=== PATIENT | female | born 1945 | race Caucasian/White ===

== ENCOUNTER 2018-04-29 23:15 | Inpatient (IN) ==
[2018-04-29] MEDS ORDERED: 0.9 % Sodium Chloride 1,000 ML IVC ONE (23:24)
--- NOTE | 2018-04-29 23:28 | Emergency Department Note ---
Disposition Clinical Impression: Atrial fibrillation with rapid ventricular response Disposition: Admitted As Inpatient Condition: Fair Time of Disposition: 01:37 General Adult HPI - General Stated complaint: irregular heartbeat Time Seen by Provider: 04/29/18 23:24 Nursing Notes Reviewed: Yes Vital Signs Reviewed: Yes - History of Present Illness HPI Narrative: 72-year-old female this emergency department with 2 weeks of shortness of breath. Patient states that she has not had any chest pain, however, today, her shortness of breath increased tremendously. She stated that she was not having palpitations either. Brought in by EMS. Reports A. fib with RVR the highest rate of 200. No fevers, no cough, no recent travel, no history of blood clots. Not taking any blood thinning medications. - Related Data Allergies Allergy/AdvReac Type Severity Reaction Status Date / Time No Known Allergies Allergy Verified 04/29/18 23:29 All systems ED: reviewed and negative except as stated. Review of Systems: As Per HPI Constitutional: Denies: fever Cardiovascular: Denies: chest pain Respiratory: Reports: dyspnea. Denies: cough Gastrointestinal: Denies: abdominal pain, nausea, vomiting Genitourinary: Denies: urgency, dysuria Musculoskeletal: Denies: back pain Hematological/Lymphatic: Denies: easy bleeding Physical Exam - General Limitations: no limitations General appearance: alert, in no apparent distress - Head Head exam: normocephalic - Eye Eye exam: Present: EOMI - ENT ENT exam: normal oropharynx - Neck Neck exam: Present: trachea midline - Chest Chest inspection: Present: symmetric chest wall rise - Respiratory Respiratory exam: Present: normal lung sounds bilaterally. Absent: respiratory distress - Cardiovascular Cardiovascular exam: Present: tachycardia, irregular rhythm - Abdominal Exam Abdominal exam: Present: soft, Non-Tender. Absent: tenderness, distention, guarding, rebound, rigidity - Extremities Exam Extremities exam: Present: normal capillary refill - Back Exam Back exam: Present: full ROM - Neurological Exam Neurological exam: Present: alert, oriented X3 - Psychiatric Psychiatric exam: Present: normal affect, normal mood - Skin Skin exam: Present: warm, dry, intact, normal color. Absent: rash Course Vital Signs Temperature 97.4 F L 04/29/18 23:23 Pulse Rate 169 04/29/18 23:23 Respiratory Rate 22 04/29/18 23:23 Blood Pressure 149/90 04/29/18 23:23 O2 Sat by Pulse Oximetry 98 04/29/18 23:23 Temperature 97.4 F L 04/29/18 23:23 Pulse Rate 133 04/30/18 00:46 Respiratory Rate 22 04/30/18 00:46 Blood Pressure 122/87 04/30/18 00:46 O2 Sat by Pulse Oximetry 97 10 00:46 Oxygen Delivery Oxygen Delivery Nasal Cannula Medical Decision Making - MDM Narrative Medical decision making narrative: 71-year-old female presented to emergency department with concern for shortness of breath over 2 weeks, worsening today. Patient is an age of fibrillation with RVR with a rate as high as 200. Patient was given 50 mg IV bolus of Cardizem. There was a delay and pharmacy to send down Cardizem drip. Patient had to be re-bolused with 10 mg IV. After this, patient's heart rate remained in the 140s with Cardizem 5 mcg/m. It was then increased to 10 mcg/m. Patient had mildly elevated troponin at 0.05. Most likely secondary to demand ischemia due to the elevated heart rate. Chest x-ray revealed right lower lobe atelectasis versus pneumonia versus effusion. Patient not having any cough or sputum production. Mild elevated leukocytosis. Did not suspect pneumonia at this time. Patient cried 2.5 L of oxygen via nasal cannula. Do not suspect pulmonary embolus at this time as patient does not have any chest pain, is not hypotensive. Patient admitted to the hospitalist who agreed to accept. I discussed this with family and they agreed for admission. Patient not in any acute distress, and patient was in A. fib with RVR with a significantly decreased rate in the 130s. Chest X-Ray 04/29/18 23:24 IMPRESSION: Small right lower lobe opacity likely represents atelectasis and pleural fluid. Underlying pneumonia is not excluded. D/ / Akira Rivera MD / Akira Rivera MD Interpreting Provider: Akira Rivera MD Vital Signs Temperature 97.4 F L 04/29/18 23:23 Pulse Rate 169 04/29/18 23:23 Respiratory Rate 22 04/29/18 23:23 Blood Pressure 149/90 04/29/18 23:23 O2 Sat by Pulse Oximetry 98 04/29/18 23:23 Temperature 97.4 F L 04/29/18 23:23 Pulse Rate 133 04/30/18 00:46 Respiratory Rate 22 04/30/18 00:46 Blood Pressure 122/87 04/30/18 00:46 O2 Sat by Pulse Oximetry 97 04/30/18 00:46 Oxygen Delivery Oxygen Delivery Nasal Cannula - Lab Data Result diagrams: 04/30/18 00:15 04/30/18 00:15 Lab Results 04/30/18 04/30/18 04/30/18 Range/Units 00:15 00:15 00:15 WBC 13.2 H (4.3-11.1) K/mcL RBC 4.78 (3.82-4.97) M/mcL Hgb 14.5 (11.5-15.4) g/dL Hct 44.6 (35.3-44.9) % MCV 93.3 (83.0-100.0) fL MCH 30.3 (28.0-33.3) pg MCHC 32.5 (31.6-35.5) g/dL RDW 13.5 (11.5-14.5) % Plt Count 288 (140-400) K/mcL MPV 10.3 (9.4-12.4) fL Immature Gran % 0.5 (0-4) % Seg Neutrophils % 83.1 % Lymphocytes % 9.6 % Monocytes % 6.1 % Eosinophils % 0.3 % Basophils % 0.4 % Neutrophils # 11.0 H (1.6-8.9) K/mcL Lymphocytes # 1.3 (0.6-4.6) K/mcL Monocytes # 0.8 (0.0-1.3) K/mcL Eosinophils # 0.0 (0.0-0.6) K/mcL Basophils # 0.1 (0.0-0.2) K/mcL PT 12.2 H (9.4-12.1) Seconds INR 1.1 APTT 29.7 (26.0-36.0) Seconds Heparin Anti-Xa, Unfract 0.04 L (0.30-0.70) IU/mL Sodium 136 (136-145) mEq/L Potassium 4.1 (3.5-5.1) mEq/L Chloride 110 H (98-107) mEq/L Carbon Dioxide 15 L (23-29) mEq/L BUN 20 (8-23) mg/dL Creatinine 0.86 (0.60-1.20) mg/dL Est GFR ( Amer) > 60 (> 60) Est GFR (Non-Af Amer) > 60 (> 60) BUN/Creatinine Ratio 23 (6-26) Glucose 152 H (70-105) mg/dL Calculated Osmolality 288 (280-300) Calcium 8.7 (8.6-10.3) mg/dL Troponin I 0.05 H* (< 0.04) ng/mL TSH 1.750 (0.340-5.600) mcIU/mL - EKG Data EKG #1 EKG attestation: Yes I reviewed and interpreted this EKG. EKG results narrative: Heart rate 153 bpm, no P waves identified, a regular rhythm, normal axis. Atrial fibrillation with rapid ventricular response. New from previous EKG. Diffuse ST depressions
[2018-04-30 00:32] LABS: Basophils # 0.1 K/mcL (0.0-0.2); Basophils % 0.4 %; Eosinophils % 0.3 %; Hematocrit 44.6 % (35.3-44.9); Hemoglobin 14.5 g/dL (11.5-15.4); Immature Granulocytes % 0.5 % (0-4); Lymphocytes # 1.3 K/mcL (0.6-4.6); Lymphocytes % 9.6 %; Mean Corpuscular HGB Conc 32.5 g/dL (31.6-35.5); Mean Corpuscular Hemoglobin 30.3 pg (28.0-33.3); Mean Corpuscular Volume 93.3 fL (83.0-100.0); Mean Platelet Volume 10.3 fL (9.4-12.4); Monocytes # 0.8 K/mcL (0.0-1.3); Monocytes % 6.1 %; Platelet Count 288 K/mcL (140-400); Red Blood Count 4.78 M/mcL (3.82-4.97); Red Cell Distribution Width 13.5 % (11.5-14.5); Segmented Neutrophils % 83.1 %
[2018-04-30 00:33] LABS: INR 1.1; Prothrombin Time 12.2 Seconds (9.4-12.1)
[2018-04-30 00:36] LABS: Activated Partial Thrombo Time 29.7 Seconds (26.0-36.0)
[2018-04-30 00:46] LABS: BUN/Creatinine Ratio 23 (6-26); Blood Urea Nitrogen 20 mg/dL (8-23); Carbon Dioxide 15 mEq/L (23-29); Chloride 110 mEq/L (98-107); Potassium 4.1 mEq/L (3.5-5.1); Sodium 136 mEq/L (136-145)
[2018-04-30 00:47] LABS: Calcium 8.7 mg/dL (8.6-10.3); Glucose 152 mg/dL (70-105); Osmolality,Calculated 288 (280-300); eGFR For Non-African Americans > 60 (> 60)
[2018-04-30 01:05] LABS: Troponin I 0.05 ng/mL (< 0.04)
[2018-04-30] MEDS ORDERED: *HR* Heparin 5,000 UNIT/ML VIAL IVP ONE (01:08)
[2018-04-30] MEDS ORDERED: *HR* Heparin 5,000 UNIT/ML VIAL IVP PRN ×2 (01:08)
[2018-04-30 01:19] LABS: Heparin anti-factor XA UFH 0.04 IU/mL (0.30-0.70)
[2018-04-30] MEDS: Heparin 25,000 UNIT/500 ML D5W 25,000 UNIT/500 ML BAG IVC SCH (02:04)
--- NOTE | 2018-04-30 02:04 | Emergency Department Note ---
Disposition Clinical Impression: Atrial fibrillation with rapid ventricular response Disposition: Admitted As Inpatient Condition: Fair General Adult HPI - General Chief complaint: ED Arrhythmia/Palpitations Stated complaint: irregular heartbeat Time Seen by Provider: 04/29/18 23:24 Source: patient, EMS Limitations: no limitations Nursing Notes Reviewed: Yes Vital Signs Reviewed: Yes - History of Present Illness Pain Scale: 0 - Related Data Allergies Allergy/AdvReac Type Severity Reaction Status Date / Time No Known Allergies Allergy Verified 04/29/18 23:29 Constitutional: Denies: fever Cardiovascular: Denies: chest pain Respiratory: Reports: dyspnea. Denies: cough Gastrointestinal: Denies: abdominal pain, nausea, vomiting Genitourinary: Denies: urgency, dysuria Musculoskeletal: Denies: back pain Hematological/Lymphatic: Denies: easy bleeding Past Medical History - Past Medical History Medical history: Reports: no medical history Psychiatric history: Reports: no psych history - Social History Smoking Status: Never smoker Smokeless Tobacco Status: No Alcohol use: Reports: none Drug use: Reports: none Physical Exam - General Limitations: no limitations General appearance: alert, in no apparent distress Course Vital Signs Temperature 97.4 F L 04/29/18 23:23 Pulse Rate 169 04/29/18 23:23 Respiratory Rate 22 04/29/18 23:23 Blood Pressure 149/90 04/29/18 23:23 O2 Sat by Pulse Oximetry 98 04/29/18 23:23 Temperature 97.4 F L 04/29/18 23:23 Pulse Rate 133 04/30/18 00:46 Respiratory Rate 22 04/30/18 00:46 Blood Pressure 122/87 04/30/18 00:46 O2 Sat by Pulse Oximetry 97 04/30/18 00:46 Oxygen Delivery Oxygen Delivery Nasal Cannula Medical Decision Making - Medical Records Medical records reviewed: Yes I reviewed the patient's medical records. - Lab Data Lab results reviewed: Yes I reviewed the patient's lab results. Result diagrams: 04/30/18 00:15 04/30/18 00:15 Lab Results 04/30/18 04/30/18 04/30/18 Range/Units 00:15 00:15 00:15 WBC 13.2 H (4.3-11.1) K/mcL RBC 4.78 (3.82-4.97) M/mcL Hgb 14.5 (11.5-15.4) g/dL Hct 44.6 (35.3-44.9) % MCV 93.3 (83.0-100.0) fL MCH 30.3 (28.0-33.3) pg MCHC 32.5 (31.6-35.5) g/dL RDW 13.5 (11.5-14.5) % Plt Count 288 (140-400) K/mcL MPV 10.3 (9.4-12.4) fL Immature Gran % 0.5 (0-4) % Seg Neutrophils % 83.1 % Lymphocytes % 9.6 % Monocytes % 6.1 % Eosinophils % 0.3 % Basophils % 0.4 % Neutrophils # 11.0 H (1.6-8.9) K/mcL Lymphocytes # 1.3 (0.6-4.6) K/mcL Monocytes # 0.8 (0.0-1.3) K/mcL Eosinophils # 0.0 (0.0-0.6) K/mcL Basophils # 0.1 (0.0-0.2) K/mcL PT 12.2 H (9.4-12.1) Seconds INR 1.1 APTT 29.7 (26.0-36.0) Seconds Heparin Anti-Xa, Unfract 0.04 L (0.30-0.70) IU/mL Sodium 136 (136-145) mEq/L Potassium 4.1 (3.5-5.1) mEq/L Chloride 110 H (98-107) mEq/L Carbon Dioxide 15 L (23-29) mEq/L BUN 20 (8-23) mg/dL Creatinine 0.86 (0.60-1.20) mg/dL Est GFR ( Amer) > 60 (> 60) Est GFR (Non-Af Amer) > 60 (> 60) BUN/Creatinine Ratio 23 (6-26) Glucose 152 H (70-105) mg/dL Calculated Osmolality 288 (280-300) Calcium 8.7 (8.6-10.3) mg/dL Troponin I 0.05 H* (< 0.04) ng/mL TSH 1.750 (0.340-5.600) mcIU/mL - Radiology Data Radiology results reviewed: Yes I reviewed the patient's radiology results. Chest X-Ray 04/29/18 23:24 IMPRESSION: Small right lower lobe opacity likely represents atelectasis and pleural fluid. Underlying pneumonia is not excluded. D/ / Akira Rivera MD / Akira Rivera MD Interpreting Provider: Akira Rivera MD - EKG Data EKG #1 EKG attestation: Yes I reviewed and interpreted this EKG. EKG results narrative: EKG shows atrial fibrillation with RVR with ventricular rate of 153. Some ST segment depression likely rate related. Critical Care Time Critical Care Time: Yes Total Critical Care Time: 60 Attestation: Critical care performed: Time is exclusive of separately billable procedures. Time includes: direct patient care, patient reassessment, coordination of patient care, interpretation of data (laboratory data, radiology data, and respiratory data), review of patient's medical records, medical consultation and documentation of patient care. Procedures included in critical care time: Procedures excluded from critical care time: Attestation Statement - Attestation Attestation: I, Margarito Mijares MD, personally evaluated this patient and discussed their management with the resident physician. I reviewed the resident's note and agree with the documented findings, medical decision making, and plan of care. 71-year-old female with no prior medical history on no medications presents to the emergency department by EMS with a complaint of having increasing shortness of breath and palpitations which started about 2 weeks prior to arrival. Patient states that in the past she has had intermittent brief episodes of palpitations with no other symptoms. Over the past 2 weeks she has had increased shortness of breath with exertion to the point that she is unable to climb her basement steps. She states she feels like her heart is racing at times and it feels irregular. No prior history of atrial fibrillation. No history of hypertension or diabetes or other heart disease. No cough or fever. No dizziness or syncope. She has had some fatigue and mild generalized weakness. On examination patient is a well-developed well-nourished well-appearing elderly female in no acute distress. She is alert and oriented 3. There is no cyanosis or diaphoresis. Chest is nontender to palpation. Breath sounds are clear and equal bilaterally. Heart is irregularly irregular with a marked tachycardia. Initial heart rate on arrival here the emergency department was in the 170s and 180s. Abdomen is soft and nontender with normal bowel sounds. No gross focal neurological deficits. Labs reviewed. Troponin 0.05. EKG shows atrial fibrillation with RVR. Chest x -ray shows a right lower lung opacity, likely atelectasis and pleural fluid but cannot rule out pneumonia. Patient has no clinical symptoms of pneumonia. Patient received a Cardizem bolus with improvement in her heart rate down to about 140 however before we could get the Cardizem infusion from pharmacy her heart rate increased back up into the 170s. She received a second Cardizem bolus of 10 mg and was placed on Cardizem infusion at 5 which was later increased to 10. She was also given heparin bolus and started on heparin infusion. The hospitalist, Dr. Clement, was consulted and accepted admission of the patient.
--- NOTE | 2018-04-30 02:16 | Internal Med History&Physical ---
Date of Encounter: 04/30/18 Time of Encounter: 02:14 Internal Medicine - H&P: HPI Chief complaint: Shortness of breath Admitted From: Home Plans for Post Hospital Care: Home History of present illness: Giovanna Beckett is a 72-year-old woman who denies any past medical history presenting to the ER with a complaint of 2 weeks of shortness of breath without associated chest pain. She says she is now dyspneic to mild to moderate exertion and intermittently notices palpitations. She states that today she felt her heart racing and this persisted longer than usual and made her feel lightheaded and significantly short of breath for which reason she called EMS. As per EMS her heart rate was up to 200 at some point in time. On arrival here she was seen to be in atrial fibrillation with rapid ventricular rate and was immediately given intravenous diltiazem and subsequently placed on a drip. She says that she has not sought medical attention in many years although she feels she has had this problem going on for a while as she has felt her heart racing and may have been told she has this condition. Eyes being on antiplatelet or anticoagulant therapy. She denies being on any medications be it prescribed or [id number] at this time. She denies alcohol and tobacco use. Only reported surgeries are lithotripsy for nephrolithiasis and cholecystectomy. She reports a history of hypertension in her father. She denies fever, cough, and chills. At this time she says she just feels tired with her heart racing and has a sensation of abdominal bloating. A 10-system review of systems was performed and is negative for pertinent findings except as documented above in the HPI. She is now admitted for newly diagnosed atrial fibrillation with rapid ventricular rate requiring intravenous antiarrhythmic/rate control agents. Past Med Surg Social Fam HX - Past Medical History Medical history: no medical history Psychiatric history: no psych history - Social History Smoking Status: Never smoker Smokeless Tobacco Status: No Alcohol use: none Drug use: none Internal Medicine - H&P: Meds 3 Allergy/AdvReac Type Severity Reaction Status Date / Time No Known Allergies Allergy Verified 04/29/18 23:29 All Systems PM: A 10-system review of systems was performed and is negative for pertinent findings except as documented above in the HPI. - Constitutional Vitals: Temp Pulse Resp BP Pulse Ox 97.4 F L 145 22 121/100 96 04/29/18 23:23 04/30/18 02:08 04/30/18 02:08 04/30/18 02:08 04/30/18 02:08 Exam: Vitals: Reviewed General: Well-developed female who appears asthenic lying in bed in NAD. Skin: Pale and dry. HEENT: Slightly dry mucous membranes. No conjunctivae pallor. Neck: No lymphadenopathy. No JVD. No carotid bruits. No palpable thyroid. Chest: Normal thoracic expansion. Normal breath sounds. Clear to auscultation. Heart: Tachycardic and irregularly irregular with no pulse deficit. Abdomen: Slightly, soft and non-tender to palpation. No peritoneal reaction. Extremities: No clubbing, cyanosis or edema. No calf tenderness. Normal distal pulses. Neurological: Awake, alert and oriented to person, place and time. No focal deficits. Psych: Affect appropriate. Internal Med - H&P Results - Labs CBC & Chem 7: 04/30/18 00:15 04/30/18 00:15 - Assessment and plan (1) Atrial fibrillation with rapid ventricular response Current Visit: Yes Status: Acute Assessment and plan: Newly diagnosed however based on her history it seems to have been present for a while. She just never sought medical attention. Now she presents in a highly decompensated state that could potentially lead to a functional heart failure state. [id number] score 2 (age/sex). TSH wnl. Check A1C to r/o DM. Continue diltiazem drip and titrate to goal HR <100. Start metoprolol succinate 25mg daily once able to come off the drip. Obtain TTE to r/o structural anomaly. For now will place on heparin gtt. pending Cardiology consult for further recs. Keep NPO. (2) Elevated troponin Current Visit: Yes Status: Acute Assessment and plan: In the setting of afib w/ rvr. Patient w/o chest pain. Likely secondary to myocardial demand. Will continue to trend as we control her heart rate. (3) Leukocytosis Current Visit: Yes Status: Acute Assessment and plan: Unclear etiology. No clinical signs/symptoms of infection present. May be stress response and dehydration. She received 1L fluids. Will repeat cbc in the morning. Qualifiers: Leukocytosis type: unspecified Qualified Code(s): D72.829 - Elevated white blood cell count, unspecified (4) DVT prophylaxis Current Visit: Yes Status: Acute Assessment and plan: Currently on heparin gtt. Should also have AES. - Time Spent With Patient Total time spent is greater than 50% in coordination of care (as documented) at patient's floor/unit and/or counseling patient: Greater than 35 minutes
[2018-04-30] MEDS ORDERED: *HR* Metoprolol 5 MG/5 ML VIAL IVP ONE (03:50)
[2018-04-30] MEDS ORDERED: Ondansetron 4 MG/2 ML VIAL IVP ONE (04:57)
[2018-04-30 06:41] LABS: Basophils % 0.3 %; Eosinophils % 0.2 %; Hematocrit 41.4 % (35.3-44.9); Hemoglobin 13.6 g/dL (11.5-15.4); Immature Granulocytes % 0.4 % (0-4); Lymphocytes # 1.5 K/mcL (0.6-4.6); Lymphocytes % 10.4 %; Mean Corpuscular HGB Conc 32.9 g/dL (31.6-35.5); Mean Corpuscular Hemoglobin 30.8 pg (28.0-33.3); Mean Corpuscular Volume 93.9 fL (83.0-100.0); Mean Platelet Volume 10.5 fL (9.4-12.4); Monocytes # 0.7 K/mcL (0.0-1.3); Monocytes % 5.1 %; Neutrophils # 11.7 K/mcL (1.6-8.9); Platelet Count 281 K/mcL (140-400); Red Blood Count 4.41 M/mcL (3.82-4.97); Red Cell Distribution Width 13.8 % (11.5-14.5); Segmented Neutrophils % 83.6 %
[2018-04-30 06:59] LABS: Alanine Aminotransferase 18 Units/L (7-52); Albumin 3.7 g/dL (3.5-5.7); Albumin/Globulin Ratio 1.3 (1.1-2.2); Alkaline Phosphatase 62 Units/L (34-104); Aspartate Amino Transferase 20 Units/L (13-39); BUN/Creatinine Ratio 21 (6-26); Bilirubin,Direct 0.2 mg/dL (0.0-0.2); Bilirubin,Indirect 0.7 mg/dL (0.0-1.2); Bilirubin,Total 0.9 mg/dL (0.3-1.0); Blood Urea Nitrogen 21 mg/dL (8-23); Calcium 8.5 mg/dL (8.6-10.3); Carbon Dioxide 18 mEq/L (23-29); Chloride 111 mEq/L (98-107); Chol/HDL Ratio 3.6 (0-4.9); Cholesterol 147 mg/dL (< 200); Globulin 2.8 g/dL (2.4-3.5); Glucose 185 mg/dL (70-105); HDL Cholesterol 41 mg/dL (40-59); LDL Cholesterol,Calculated 90 mg/dL (0-99); Osmolality,Calculated 294 (280-300); Potassium 4.4 mEq/L (3.5-5.1); Sodium 138 mEq/L (136-145); Total Protein 6.5 g/dL (6.4-8.9); Triglycerides 78 mg/dL (< 150); eGFR For Non-African Americans 55 (> 60)
[2018-04-30] MEDS: Metoprolol XL (24 HR) Succ 25 MG TAB.ER.24H PO SCH (08:02)
[2018-04-30 09:09] LABS: Estimated Average Glucose 114 mg/dl; Hemoglobin A1C 5.6 %
--- NOTE | 2018-04-30 10:27 | Cardiology Consult Note ---
Date of Encounter: 04/30/18 Time of Encounter: 09:00 Assessment and Plan (1) Atrial fibrillation with rapid ventricular response Current Visit: Yes Status: Acute New onset. Currently rate 120-130s, irregular. She will need rate controlled. Continue Toprolol XL 25mg. Plan to give another bolus Cardizem 10mg and increase drip to 15mls/hr. Goal is HR <80. Will re-evaluate in the morning to possibly switch her to oral medications if heart rate stabilizes. CHADS-VASC 2. On heparin drip for anticoagulation. BLANQUITA completed today. Limited due to poor echo windows and elevated heart rate. LV systolic function moderate to severely reduced with wall motion abnormalities , indeterminate diastolic function, mildly dilated left ventricle, severely dilated left atrium, mild to moderate mitral and tricuspid regurgitation and mild pulmonic regurgitation. Plan for repeat echocardiogram tomorrow if rate is better controlled. (2) Elevated troponin Current Visit: Yes Status: Acute Troponin 0.05 and 0.07. Continue serial troponin. No active chest pain. Likely elevated due to demand ischemia from elevated heart rate and irregular rhythm. (3) Leukocytosis Current Visit: Yes Status: Acute Unclear etiology. Management per medicine service. Qualifiers: Leukocytosis type: unspecified Qualified Code(s): D72.829 - Elevated white blood cell count, unspecified Discussion w patient/family: The assessment and plan as outlined above was discussed with the patient and/or family members who expressed understanding and agreement. All questions were answered. Thank you for involving us in the care of your patient. Please call with any questions. History of Present Illness Consult date: 04/30/18 Requesting physician: Nora Clement Consult reason: New onset AFib in RVR Chief complaint: shortness of breath History of present illness: Ms. Beckett is a 72 year old female With n past medical history who presents with a chief complaint of worsening shortness of breath. Patient complains of shortness of breath with exertion and increasing generalized weakness and tired feeling for the past couple of weeks. Yesterday morning she notes progressively worsening shortness of breath In the evening she felt her heart racing, felt lightheaded, and complains of worsened shortness of breath. She denies any episodes of chest pain. She called EMS to take her to the hospital. It was noted her rate was 200 beats per minute at times. Upon arrival to the ED she was found to be in atrial fibrillation with RVR and was given IV diltiazem bolus and drip. Troponin was noted to be increased at 0.05. Cardiology was consulted for further evaluation of new onset atrial fibrillation. This morning patient denies chest pain, shortness of breath, palpitations, lightheadedness, or any new complaints. States she intermittently feels palpitations for the past few years but has not had it worked up in the past. Patient's diltiazem drip was discontinued overnight as her heart rate came down to the 60-70's. Around 0830, her heart rate was 120-130's and irregular rhythm during my evaluation. Cardizem drip restarted. Past Med Surg Social Fam HX - Past Medical History Medical history: no medical history Additional medical history: kidney stones Psychiatric history: no psych history - Past Surgical History Surgical History: cholecystectomy - Social History Smoking Status: Never smoker Smokeless Tobacco Status: No Alcohol use: none Drug use: none Medications and Allergies Multivit-Min/Iron/Folic Acid/K [Adults Multivitamin Tablet] 1 tab PO DAILY 04/30 [History] 3 Allergy/AdvReac Type Severity Reaction Status Date / Time No Known Allergies Allergy Verified 04/29/18 23:29 All Systems Review: The remainder of the systems were reviewed and are negative - Constitutional Constitutional: weakness, no chills, no fever(s), no headache(s) - EENT Eyes: no blurred vision, no loss of vision Nose, mouth and throat: no dysphagia, no sore throat - Cardiovascular Cardiovascular: dyspnea on exertion, lightheadedness, palpitations, rapid heart rate, no chest pain at rest, no chest pain with exertion, no diaphoresis, no leg edema - Respiratory Respiratory: dyspnea, no cough - Gastrointestinal Gastrointestinal: no abdominal pain, no nausea - Genitourinary Genitourinary: no dysuria - Musculoskeletal Musculoskeletal: no muscle weakness, no myalgias - Integumentary Integumentary: no rash - Neurological Neurological: no loss of vision, no numbness, no syncope, no tingling Physical Examination Vital Signs, Last 4 Hours Temp Pulse Resp BP Pulse Ox 04/30/18 07:24 97.5 F L 89 24 113/72 93 General: Conversant, No Apparent Distress HEENT: Atraumatic, Normocephaly Neck: No JVD, Normal carotid pulses Cardiac: No Murmur, Other (Irregular rhythm, tachycardic) Lungs: Normal Breath Sounds, No Wheeze, Rales, Rhonchi Neuro: Alert and responsive, No focal deficits noted Abdomen: Soft, Non-Tender Skin: No rashes noted on visualized skin Extremities: No Edema, Normal Pulses (Bilateral radial pulses palpable and equal ) Results 04/30/18 06:21 04/30/18 06:21 Lab Results 04/30/18 04/30/18 04/30/18 06:21 06:21 06:21 WBC 14.0 H Hgb 13.6 Hct 41.4 Plt Count 281 Sodium 138 Potassium 4.4 Chloride 111 H Carbon Dioxide 18 L BUN 21 Creatinine 0.99 Glucose 185 H Calcium 8.5 L Total Bilirubin 0.9 AST 20 ALT 18 Alkaline Phosphatase 62 Troponin I 0.07 H* - Imaging and Cardiology Chest Xray: report reviewed Echo: report reviewed Consult Discharge Plan - Plan Referrals: NONE,PCP [Primary Care Provider] - Leodan Marquez [Family Provider] -
--- NOTE | 2018-04-30 11:56 | Internal Med Progress Note ---
Hospitalist Progress Note - Encounter Date of Encounter: 04/30/18 Time of Encounter: 11:49 - Subjective Interval History: No acute events. States feeling better after heart rate controlled. Denies chest pain. States has some SOB, but not much. Denies fevers. - Exam Vitals: Temp Pulse Resp BP Pulse Ox 98.1 F 115 22 150/63 96 04/30/18 11:11 04/30/18 11:11 04/30/18 11:11 04/30/18 11:11 04/30/18 11:11 Exam: General: Well-developed female who appears asthenic lying in bed in NAD. Skin: Pale and dry, diaphoretic HEENT: Slightly dry mucous membranes. No conjunctivae pallor. Neck: No lymphadenopathy. No JVD. No carotid bruits. No palpable thyroid. Chest: Normal thoracic expansion. Normal breath sounds. Clear to auscultation. Heart: Tachycardic and irregularly irregular with no pulse deficit. Abdomen: Slightly, soft and non-tender to palpation. No peritoneal reaction. Extremities: No clubbing, cyanosis or edema. No calf tenderness. Normal distal pulses. Neurological: Awake, alert and oriented to person, place and time. No focal deficits. Psych: Affect appropriate. - Assessment and Plan (1) Atrial fibrillation with rapid ventricular response Current Visit: Yes Status: Acute Assessment and Plan: Newly diagnosed however based on her history it seems to have been present for a while. She just never sought medical attention. Now she presents in a highly decompensated state that could potentially lead to a functional heart failure state. [id number] score 2 (age/sex). TSH wnl. Check A1C to r/o DM. Continue diltiazem drip and titrate to goal HR <100. Start metoprolol succinate 25mg daily once able to come off the drip. Obtain TTE to r/o structural anomaly. Cardiology following, recommendations appreciated. (2) Leukocytosis Current Visit: Yes Status: Acute Assessment and Plan: Unclear etiology. No clinical signs/symptoms of infection present. May be stress response and dehydration. She received 1L fluids. Will repeat cbc in the morning shows WBC 14 CXR shows atelectasis on left but possible pneumonia. She notes to me that yesterday she needed chest rub and has some chest congestion. Has WBC and CXR findings. Will start Doxycycline for 5-7 days. (3) Elevated troponin Current Visit: Yes Status: Acute Assessment and Plan: In the setting of afib w/ rvr. Patient w/o chest pain. Likely secondary to myocardial demand. Will continue to trend as we control her heart rate. (4) DVT prophylaxis Current Visit: Yes Status: Acute Assessment and Plan: Currently on heparin gtt. - Time Spent with Patient Total time spent is greater than 50% in coordination of care (as documented) at patient's floor/unit and/or counseling patient: Internal Medicine: Result - Labs CBC & Chem 7: 04/30/18 06:21 04/30/18 06:21 Labs: Short CBC 04/30/18 Range/Units 06:21 WBC 14.0 H (4.3-11.1) K/mcL Hgb 13.6 (11.5-15.4) g/dL Hct 41.4 (35.3-44.9) % Plt Count 281 (140-400) K/mcL Neutrophils # 11.7 H (1.6-8.9) K/mcL BMP 04/30/18 06:21 Sodium 138 Potassium 4.4 Chloride 111 H Carbon Dioxide 18 L BUN 21 Creatinine 0.99 Glucose 185 H Calcium 8.5 L Cardiac Enzymes 04/30/18 Range/Units 06:21 Troponin I 0.07 H* (< 0.04) ng/mL Liver Function 04/30/18 Range/Units 06:21 Total Bilirubin 0.9 (0.3-1.0) mg/dL Direct Bilirubin 0.2 (0.0-0.2) mg/dL AST 20 (13-39) Units/L ALT 18 (7-52) Units/L Alkaline Phosphatase 62 (34-104) Units/L Albumin 3.7 (3.5-5.7) g/dL - ABG Interpretation ABG results: PT/INR, D-dimer PT 12.2 Seconds (9.4-12.1) H 04/30/18 00:15 Consult Discharge Plan - Plan Referrals: NONE,PCP [Primary Care Provider] - Leodan Marquez [Family Provider] - (2) Leukocytosis Qualifiers: Leukocytosis type: unspecified Qualified Code(s): D72.829 - Elevated white blood cell count, unspecified
[2018-04-30] MEDS: Doxycycline 100 MG in 0.9 % Sodium Chloride Mini Bag 100 ML IVPB SCH (12:53)
[2018-04-30] MEDS ORDERED: Furosemide 20 MG/2 ML VIAL IVP SCH (16:15)
[2018-05-01] MEDS: Doxycycline 100 MG in 0.9 % Sodium Chloride Mini Bag 100 ML IVPB SCH ×2 (00:21→12:47)
[2018-05-01] MEDS: Heparin 25,000 UNIT/500 ML D5W 25,000 UNIT/500 ML BAG IVC SCH (01:05)
[2018-05-01 05:13] LABS: Basophils # 0.1 K/mcL (0.0-0.2); Basophils % 0.5 %; Eosinophils # 0.1 K/mcL (0.0-0.6); Eosinophils % 0.7 %; Hematocrit 40.2 % (35.3-44.9); Immature Granulocytes % 0.3 % (0-4); Lymphocytes # 1.7 K/mcL (0.6-4.6); Lymphocytes % 14.1 %; Mean Corpuscular HGB Conc 32.3 g/dL (31.6-35.5); Mean Corpuscular Hemoglobin 30.2 pg (28.0-33.3); Mean Corpuscular Volume 93.5 fL (83.0-100.0); Mean Platelet Volume 10.5 fL (9.4-12.4); Monocytes # 1.1 K/mcL (0.0-1.3); Monocytes % 8.6 %; Neutrophils # 9.3 K/mcL (1.6-8.9); Platelet Count 259 K/mcL (140-400); Red Cell Distribution Width 13.8 % (11.5-14.5); Segmented Neutrophils % 75.8 %
[2018-05-01 05:31] LABS: BUN/Creatinine Ratio 26 (6-26); Blood Urea Nitrogen 22 mg/dL (8-23); Calcium 8.4 mg/dL (8.6-10.3); Carbon Dioxide 20 mEq/L (23-29); Chloride 109 mEq/L (98-107); Glucose 132 mg/dL (70-105); Osmolality,Calculated 291 (280-300); Potassium 3.4 mEq/L (3.5-5.1); Sodium 138 mEq/L (136-145); eGFR For Non-African Americans > 60 (> 60)
[2018-05-01] MEDS: Metoprolol XL (24 HR) Succ 25 MG TAB.ER.24H PO SCH ×2 (07:54→20:44)
--- NOTE | 2018-05-01 09:17 | Internal Med Progress Note ---
Hospitalist Progress Note - Encounter Date of Encounter: 05/01/18 Time of Encounter: 09:43 - Subjective Interval History: No acute events. States feeling better after heart rate controlled. Denies chest pain. States has some SOB, but not much. Denies fevers. 05/01: No acute events overnight. Still on O2. Patient states breathing only a little better but she does have some congestion in lungs. She denies chest pain, fevers, chills, cough with sputum, edema. - Exam Vitals: Temp Pulse Resp BP Pulse Ox 97.9 F 104 16 134/79 93 05/01/18 06:46 05/01/18 06:46 05/01/18 06:46 05/01/18 06:46 05/01/18 06:46 Exam: General: Well-developed female who appears asthenic lying in bed in NAD. Skin: Pale and dry, diaphoretic Neck: No lymphadenopathy. No JVD. No carotid bruits. No palpable thyroid. Chest: fine rales at bases, faint exp wheezing, good air exchange. Heart: Tachycardic and irregularly irregular with no pulse deficit. Extremities: No clubbing, cyanosis. No calf tenderness. Trace bipedal edema Neurological: Awake, alert and oriented to person, place and time. No focal deficits. Psych: Affect appropriate. - Assessment and Plan (1) Acute respiratory failure with hypoxia Current Visit: Yes Status: Acute Assessment and Plan: Patient has rales on exam this morning and faint wheezing. Currently requires 4 L O2 which she does not require O2 at home. Chest x-ray on admission shows right lower lobe opacity that could be atelectasis, pleural fluid, or underlycin pneumonia. Trace bipedal edema on exam. Has history of second hand smoke but not tobacco user. No known lung disease. Secondary to fluid overload, vs atelectatsis, vs pneumnia, vs other. - Continue Lasix as was given yesterday, one dose today and monitor. - Monitor I/Os - Continue Doxycycline - CT chest today for better visualization - Echo read recommends repeat with contrast, will do with definity - Wean O2 as tolerated - Incentive spirometery (2) Atrial fibrillation with rapid ventricular response Current Visit: Yes Status: Acute Assessment and Plan: Newly diagnosed however based on her history it seems to have been present for a while. She just never sought medical attention. Now she presents in a highly decompensated state that could potentially lead to a functional heart failure state. [id number] score 2 (age/sex). Continue diltiazem drip and titrate to goal HR <100. Continue heparin drip Continue metoprolol succinate 25mg daily once able to come off the drip. TTE had poor visualization. Recommends repeat with enhancement, so will place for echo with definity. Cardiology following, recommendations appreciated. (3) Leukocytosis Current Visit: Yes Status: Acute Assessment and Plan: Unclear etiology. No clinical signs/symptoms of infection present. May be stress response or pneumonia. WBC on admission elevated at 14k today is 12k CXR shows atelectasis on left but possible pneumonia. She notes to me that yesterday she needed chest rub and has some chest congestion. Started on doxycycline yesterday for likely pneumonia. Continue doxycycline. (4) Elevated troponin Current Visit: Yes Status: Acute Assessment and Plan: In the setting of afib w/ rvr. Patient w/o chest pain. Likely secondary to myocardial demand. Will continue to trend as we control her heart rate. (5) DVT prophylaxis Current Visit: Yes Status: Acute Assessment and Plan: Currently on heparin gtt. - Time Spent with Patient Total time spent is greater than 50% in coordination of care (as documented) at patient's floor/unit and/or counseling patient: Internal Medicine: Result - Labs CBC & Chem 7: 05/01/18 04:46 05/01/18 04:46 Labs: Short CBC 05/01/18 Range/Units 04:46 WBC 12.2 H (4.3-11.1) K/mcL Hgb 13.0 (11.5-15.4) g/dL Hct 40.2 (35.3-44.9) % Plt Count 259 (140-400) K/mcL Neutrophils # 9.3 H (1.6-8.9) K/mcL BMP 05/01/18 04:46 Sodium 138 Potassium 3.4 L Chloride 109 H Carbon Dioxide 20 L BUN 22 Creatinine 0.86 Glucose 132 H Calcium 8.4 L - ABG Interpretation ABG results: PT/INR, D-dimer PT 12.2 Seconds (9.4-12.1) H 04/30/18 00:15 - Impressions Impressions Echocardiogram 04/30/18 02:01 Impressions: Technically challenging due to poor echocardiographic windows. Atrial fibrillation with RVR. LV systolic function grossly appears to be moderate to severely reduced possibly with regional wall motion abnormalities. Unable to evaluate segmental wall motion due to technical quality. Indeterminate diastolic function. Mildly dilated left ventricle. Normal right ventricular structure and function. Severely dilated left atrium. Mild-moderate mitral regurgitation. Mild-moderate tricuspid regurgitation. Mild pulmonic regurgitation. Mild pulmonary hypertension. Recommend repeat study with imaging enhancement when heart rates and clinical - VTE Documentation of Mechanical Device: Graduated compression elastic hosiery Consult Discharge Plan - Plan Referrals: NONE,PCP [Primary Care Provider] - Leodan Marquez [Family Provider] - (3) Leukocytosis Qualifiers: Leukocytosis type: unspecified Qualified Code(s): D72.829 - Elevated white blood cell count, unspecified
[2018-05-01] MEDS ORDERED: Furosemide 20 MG/2 ML VIAL IVP ONE (09:21)
[2018-05-01] MEDS ORDERED: *HR* LORazepam 0.5 MG TABLET PO PRN (09:31)
[2018-05-01] MEDS ORDERED: Isovue-370 500 ML INFUS..BTL IV ONE (09:57)
[2018-05-01] MEDS: Ipratropium/Albuterol Neb 3 ML IH SCH ×3 (10:40→21:57)
[2018-05-01] MEDS ORDERED: Ipratropium/Albuterol Neb 3 ML IH SCH (12:00)
[2018-05-01] MEDS: predniSONE 20 MG TABLET PO SCH (12:47)
[2018-05-01 12:53] LABS: ABG Base Excess -4 mEq/L (-2 to 3); ABG HCO3 20 mEq/L (21-27); ABG Oxygen Saturation 95 % (95-98); ABG PCO2 33 mmHg (35-45); ABG PO2 76 mmHg (85-104); ABG TCO2 21 mEq/L (20-26)
--- NOTE | 2018-05-01 13:39 | Cardiology Progress Note ---
Date of Encounter: 05/01/18 Time of Encounter: 13:37 Assessment and Plan (1) Acute pulmonary embolism Current Visit: Yes Status: Acute Acute pulmonary embolism per CT. ABG demonstrates a PO2 of 76 on 3 L nasal cannula. Dyspnea noted at bedside. Agree with pulmonary consultation. RV was described as normal in size/function on TTE. Continue heparin drip. Blood pressure remains stable. AF with RVR, heart rate 110s noted. Qualifiers: Pulmonary embolism type: other Acute cor pulmonale presence: without acute cor pulmonale Qualified Code(s): I26.99 - Other pulmonary embolism without acute cor pulmonale (2) Atrial fibrillation with rapid ventricular response Current Visit: Yes Status: Acute Atrial fibrillation in the setting of acute pulmonary embolism. RVR remains despite Cardizem. Heart rate should become easier to control as PE is treated. Continue heparin drip and Cardizem drip. Previous TTE noted, recommend repeat once heart rate better controlled. (3) Elevated troponin Current Visit: Yes Status: Acute Minimal troponin elevation in the setting of tachycardia and pulmonary embolism. Presentation is not consistent with ACS. Continue treatment as above. Discussion w patient/family: The assessment and plan as outlined above was discussed with the patient and/or family members who expressed understanding and agreement. All questions were answered. Thank you for involving us in the care of your patient. Please call with any questions. Subjective Principal diagnosis: Atrial fibrillation Interval history: Despite Cardizem, persistent AF with RVR noted throughout the night. Ongoing dyspnea reported by patient. Case discussed with hospitalist, CT angiogram chest recommended, which demonstrated: Acute pulmonary embolism with moderate clot burden. Cardiomegaly with right heart strain described. Bilateral pleural effusions, moderate on right and small on left. Objective Vital Signs, Last 4 Hours Temp Pulse Resp BP Pulse Ox 05/01/18 11:36 97.9 F 110 22 127/74 96 05/01/18 10:40 16 93 General: Conversant, No Apparent Distress HEENT: Atraumatic, Normocephaly, Mucus Membranes Moist Neck: No JVD Cardiac: Other (Irregular rate and rhythm, tachycardia.) Lungs: Other (Shallow, reduced at bases) Neuro: Alert and responsive, No focal deficits noted Abdomen: Soft, Non-Tender Skin: No rashes noted on visualized skin Musculoskeletal: No Chest Wall Tenderness Extremities: No Clubbing, No Cyanosis, No Edema Results 05/01/18 04:46 05/01/18 04:46 Lab Results 05/01/18 05/01/18 04:46 04:46 WBC 12.2 H Hgb 13.0 Hct 40.2 Plt Count 259 Sodium 138 Potassium 3.4 L Chloride 109 H Carbon Dioxide 20 L BUN 22 Creatinine 0.86 Glucose 132 H Calcium 8.4 L - Imaging and Cardiology Echo: report reviewed - EKG Interpretation EKG results cardiology: personally reviewed - VTE Documentation of Mechanical Device: Graduated compression elastic hosiery Consult Discharge Plan - Plan Referrals: NONE,PCP [Primary Care Provider] - Leodan Marquez [Family Provider] -
[2018-05-01] MEDS ORDERED: *HR* Metoprolol 5 MG/5 ML VIAL IVP ONE (16:10)
[2018-05-01] MEDS ORDERED: Furosemide 20 MG/2 ML VIAL IVP SCH (17:00)
[2018-05-01] MEDS: Simethicone 80 MG TAB.CHEW PO PRN (21:18)
[2018-05-01] MEDS: *HR* LORazepam 0.5 MG TABLET PO PRN (23:09)
[2018-05-02] MEDS: Furosemide 40 MG/4 ML VIAL IVP SCH ×3 (00:58→19:59)
[2018-05-02] MEDS: Doxycycline 100 MG in 0.9 % Sodium Chloride Mini Bag 100 ML IVPB SCH ×2 (00:59→11:58)
[2018-05-02 03:36] LABS: Basophils % 0.3 %; Eosinophils % 0.2 %; Hematocrit 39.9 % (35.3-44.9); Hemoglobin 12.9 g/dL (11.5-15.4); Immature Granulocytes % 0.4 % (0-4); Lymphocytes # 1.7 K/mcL (0.6-4.6); Lymphocytes % 12.9 %; Mean Corpuscular HGB Conc 32.3 g/dL (31.6-35.5); Mean Corpuscular Hemoglobin 30.6 pg (28.0-33.3); Mean Corpuscular Volume 94.5 fL (83.0-100.0); Mean Platelet Volume 10.3 fL (9.4-12.4); Monocytes # 1.1 K/mcL (0.0-1.3); Monocytes % 8.3 %; Neutrophils # 10.2 K/mcL (1.6-8.9); Platelet Count 236 K/mcL (140-400); Red Blood Count 4.22 M/mcL (3.82-4.97); Segmented Neutrophils % 77.9 %
[2018-05-02 03:54] LABS: BUN/Creatinine Ratio 28 (6-26); Blood Urea Nitrogen 23 mg/dL (8-23); Calcium 8.8 mg/dL (8.6-10.3); Carbon Dioxide 22 mEq/L (23-29); Chloride 109 mEq/L (98-107); Glucose 131 mg/dL (70-105); Osmolality,Calculated 295 (280-300); Potassium 3.7 mEq/L (3.5-5.1); Sodium 140 mEq/L (136-145); eGFR For Non-African Americans > 60 (> 60)
[2018-05-02] MEDS: Levalbuterol Neb 1.25 MG/3 ML IH SCH ×4 (04:55→21:59)
--- NOTE | 2018-05-02 06:40 | Pulmonology Consult Note ---
Date of Encounter: 05/02/18 Time of Encounter: 06:39 Assessment and Plan (1) Acute respiratory failure with hypoxia Current Visit: Yes Status: Acute This is multifactorial including heart failure and acute pulmonary embolus Stable today on 3.5 L nasal cannula Wean FiO2 to keep oxygen saturation around 92% Suspect she would need ambulatory pulse oximetry prior to discharge to qualify for ongoing oxygen if needed (2) Acute pulmonary embolism Current Visit: Yes Status: Acute This appears to be an unprovoked event There is no evidence of right heart strain on echocardiogram she is hemodynamically stable and would be classified as a simple/uncomplicated pulmonary embolus Need at least 6 months of continuous anticoagulation Recommend CT of the abdomen and pelvis to evaluate for malignancy Recommend formal hematology consultation either as inpatient or as outpatient Qualifiers: Pulmonary embolism type: other Acute cor pulmonale presence: without acute cor pulmonale Qualified Code(s): I26.99 - Other pulmonary embolism without acute cor pulmonale (3) Acute systolic heart failure Current Visit: Yes Status: Acute Cardiology following I wonder if this could be related to chronic tachycardia I suspect she would benefit from left heart catheterization but really would have to defer to cardiology for this She will need aggressive diuresis as tolerated by her renal function Based upon echocardiogram there is no contraindication to this from RV dysfunction (4) Atrial fibrillation with rapid ventricular response Current Visit: Yes Status: Acute Rate control today on diltiazem infusion Management per cardiology and primary hospitalist service Because it appears she would need to have long-term anticoagulation for underlying atrial fibrillation chronic anticoagulation for venous thromboembolism is less of an issue however if the anticoagulation had to be interrupted for procedure that at least for the first 6 months and should be taken in account that she has a concomitant venous thromboembolism and she would have to be bridged I discussed my impression and plan directly with the primary hospitalist service For consultation please call if you have any questions otherwise pulmonary would sign off History of Present Illness Consult date: 05/02/18 Requesting physician: Dalton Ross Reason for consult: pulmonary embolism Chief complaint: Difficulty in Breathing History of present illness: This is a 72-year-old woman with no significant past medical history who presented to emergency room complaining of 2 weeks of shortness of breath but no chest pain she was increasingly short of breath with the mild to moderate exertion. She also felt her heart racing with palpitations and lightheaded. In the emergency room was found to be in atrial fibrillation with rapid ventricular rate and plan treated with senna infusion of diltiazem she thinks this may be a long-standing problem but has not followed with a physician for. No past medical history of alcohol or tobacco abuse and no illicit drug use. Family history is notable for hypertension and her father. Since admission she is been treated for acute hypoxic respiratory failure requiring supplemental oxygen and presumed heart failure along with the atrial fibrillation. The medicine service and the patient for a CT angiogram of the chest was was notable for a acute pulmonary embolus with moderate clot burden in some concern of right ventricular strain echocardiogram however were showed no RV strain and preserved RV function. CTA was also notable for a bilateral pleural effusions. Echocardiogram was notable for LV function that was moderate to severely reduced with a mildly dilated LV and severely dilated left atrium. Additionally LE Duplex was notable for Patient is positive for partial DVT in lower left extremity SFV. Her blood pressure has been stable throughout this hospitalization. No personal history of malignancy she does endorse some night sweats but has not lost any weight denies hemoptysis. She had a colonoscopy within the last 10 years but in no recent mammograms distant history of Pap smear. Given family history of malignancy. She worked at [employer] in the [employer] division as mentioned to lifelong nonsmoker but had significant passive smoke exposure. Pulmonary was consulted for further evaluation of the patient's pulmonary embolus and respiratory status Past Med Surg Social Fam HX - Past Medical History Medical history: no medical history Additional medical history: kidney stones Psychiatric history: no psych history - Past Surgical History Surgical History: cholecystectomy - Social History Smoking Status: Never smoker Smokeless Tobacco Status: No Alcohol use: none Drug use: none Medications and Allergies Multivit-Min/Iron/Folic Acid/K [Adults Multivitamin Tablet] 1 tab PO DAILY 04/30 [History] 3 Allergy/AdvReac Type Severity Reaction Status Date / Time No Known Allergies Allergy Verified 04/29/18 23:29 All Systems: The remainder of the systems were reviewed and are negative Physical Examination Vital Signs: Vital Signs, Last 4 Hours Temp Pulse Resp BP Pulse Ox 05/02/18 04:55 16 96 05/02/18 04:22 97.6 F 89 17 114/78 96 General appearance: no acute distress Eyes: nonicteric ENT: oropharynx moist Neck: supple, no lymphadenopathy Effort: normal Auscultation: bilateral: rales Cardiovascular: irregular rhythm Gastrointestinal: normoactive bowel sounds, soft, non-tender Integumentary: normal Extremities: no cyanosis, pink and warm, pulses normal, no ischemia or petechiae , edema (trace non pittinge b/l symmetric LE edema ) Musculoskeletal: no deformities normal mental status, non-focal exam, pupils equal and round mood appropriate Results - Laboratory Findings CBC and BMP: 05/02/18 03:23 05/02/18 03:23 ABG ABG pH 7.40 pH Units (7.32-7.45) 05/01/18 12:50 ABG pCO2 33 mmHg (35-45) L 05/01/18 12:50 ABG pO2 76 mmHg (85-104) L 05/01/18 12:50 ABG O2 Saturation 95 % (95-98) 05/01/18 12:50 PT/INR, D-dimer PT 12.2 Seconds (9.4-12.1) H 04/30/18 00:15 Abnormal lab findings: Abnormal lab results WBC 13.1 K/mcL (4.3-11.1) H 05/02/18 03:23 Neutrophils # 10.2 K/mcL (1.6-8.9) H 05/02/18 03:23 PT 12.2 Seconds (9.4-12.1) H 04/30/18 00:15 ABG pCO2 33 mmHg (35-45) L 05/01/18 12:50 ABG pO2 76 mmHg (85-104) L 05/01/18 12:50 ABG HCO3 20 mEq/L (21-27) L 05/01/18 12:50 ABG Base Excess -4 mEq/L (-2 to 3) L 05/01/18 12:50 Chloride 109 mEq/L (98-107) H 05/02/18 03:23 Carbon Dioxide 22 mEq/L (23-29) L 05/02/18 03:23 BUN/Creatinine Ratio 28 (6-26) H 05/02/18 03:23 Glucose 131 mg/dL (70-105) H 05/02/18 03:23 POC Glucose 133 mg/dL (70-99) H 04/30/18 11:02 Troponin I 0.07 ng/mL (< 0.04) H* 04/30/18 06:21 B-Natriuretic Peptide 316 pg/mL (Less than 100) H 05/01/18 13:15 - Diagnostic Findings Chest x-ray: report reviewed, image reviewed CT scan - chest: report reviewed, image reviewed - Clinical Findings Intake & Output: Intake & Output 05/01/18 05/01/18 05/02/18 15:59 23:59 07:59 Intake Total 370 / 370 440 / 440 353.7 / 353.7 Output Total 0 / 0 150 / 150 0 / 0 Balance 370 / 370 290 / 290 353.7 / 353.7 Weight 81.7 kg Consult Discharge Plan - Plan Referrals: NONE,PCP [Primary Care Provider] - Leodan Marquez [Family Provider] -
[2018-05-02] MEDS: Heparin 25,000 UNIT/500 ML D5W 25,000 UNIT/500 ML BAG IVC SCH (07:01)
[2018-05-02] MEDS: predniSONE 20 MG TABLET PO SCH (07:34)
[2018-05-02] MEDS: Metoprolol XL (24 HR) Succ 25 MG TAB.ER.24H PO SCH ×2 (07:34→19:59)
--- NOTE | 2018-05-02 10:34 | Internal Med Progress Note ---
Hospitalist Progress Note - Encounter Date of Encounter: 05/02/18 Time of Encounter: 10:40 - Subjective Interval History: No acute events. States feeling better after heart rate controlled. Denies chest pain. States has some SOB, but not much. Denies fevers. 05/01: No acute events overnight. Still on O2. Patient states breathing only a little better but she does have some congestion in lungs. She denies chest pain, fevers, chills, cough with sputum, edema. 05/02: Patient states breathing is stable. SOB of breath with exertion but oxygenation improved. Denies chest pain, fevers/chills. Denies palpitations. - Exam Vitals: Temp Pulse Resp BP Pulse Ox 98 F 102 18 114/82 94 05/02/18 07:31 05/02/18 07:31 05/02/18 07:31 05/02/18 07:31 05/02/18 07:31 Exam: General: Well-developed female who appears asthenic lying in bed in NAD. Skin: Pale and dry, diaphoretic Neck: No lymphadenopathy. No JVD. No carotid bruits. No palpable thyroid. Chest: fine rales at bases, faint exp wheezing, good air exchange. Heart: Tachycardic and irregularly irregular with no pulse deficit. Extremities: No clubbing, cyanosis. No calf tenderness. Trace bipedal edema Neurological: Awake, alert and oriented to person, place and time. No focal deficits. Psych: Affect appropriate. - Assessment and Plan (1) Acute respiratory failure with hypoxia Current Visit: Yes Status: Acute Assessment and Plan: Patient has rales on exam this morning and faint wheezing. Currently requires 4 L O2 which she does not require O2 at home. Chest x-ray on admission shows right lower lobe opacity that could be atelectasis, pleural fluid, or underlycin pneumonia. Trace bipedal edema on exam. Has history of second hand smoke but not tobacco user. No known lung disease. Secondary to fluid overload, afrib with RVR, and acute pulmonary embolism - Continue IV Lasix BID - Monitor I/Os - Continue Doxycycline - Repeat echo pending - Wean O2 as tolerated - Incentive spirometery - Cardiology following, recommendations appreciated. - Continue heparin drip. - Pulmonology consulted in regards to acute PE, agrees with current therapy. (2) Atrial fibrillation with rapid ventricular response Current Visit: Yes Status: Acute Assessment and Plan: Newly diagnosed however based on her history it seems to have been present for a while. She just never sought medical attention. Now she presents in a highly decompensated state that could potentially lead to a functional heart failure state. [id number] score 2 (age/sex). Continue diltiazem drip and titrate to goal HR <100. Continue heparin drip Continue metoprolol succinate 25mg daily once able to come off the drip. TTE had poor visualization. Recommends repeat with enhancement, so will place for echo with definity. Cardiology following, recommendations appreciated. (3) Leukocytosis Current Visit: Yes Status: Acute Assessment and Plan: Unclear etiology. No clinical signs/symptoms of infection present. May be stress response or pneumonia. WBC on admission elevated at 14k today is 12k CXR shows atelectasis on left but possible pneumonia. She has some chest congestion. Likely due to acute PE, continue IV heparin. (4) Elevated troponin Current Visit: Yes Status: Acute Assessment and Plan: In the setting of afib w/ rvr. Patient w/o chest pain. Likely secondary to demand ischemia. Will continue to trend as we control her heart rate. (5) DVT prophylaxis Current Visit: Yes Status: Acute Assessment and Plan: Currently on heparin gtt. (6) Acute pulmonary embolism Current Visit: Yes Status: Acute Assessment and Plan: See plan as above. Likely this is unprovoked DVT Continue heparin drip. Will consult Heme/Onc for further recommendations. - Will laughlin check NOACs and coumadin for discharge planning. - Time Spent with Patient Total time spent is greater than 50% in coordination of care (as documented) at patient's floor/unit and/or counseling patient: Internal Medicine: Result - Labs CBC & Chem 7: 05/02/18 03:23 05/02/18 03:23 Labs: Short CBC 05/02/18 Range/Units 03:23 WBC 13.1 H (4.3-11.1) K/mcL Hgb 12.9 (11.5-15.4) g/dL Hct 39.9 (35.3-44.9) % Plt Count 236 (140-400) K/mcL Neutrophils # 10.2 H (1.6-8.9) K/mcL BMP 05/02/18 03:23 Sodium 140 Potassium 3.7 Chloride 109 H Carbon Dioxide 22 L BUN 23 Creatinine 0.83 Glucose 131 H Calcium 8.8 - ABG Interpretation ABG results: ABG ABG pH 7.40 pH Units (7.32-7.45) 05/01/18 12:50 ABG pCO2 33 mmHg (35-45) L 05/01/18 12:50 ABG pO2 76 mmHg (85-104) L 05/01/18 12:50 ABG O2 Saturation 95 % (95-98) 05/01/18 12:50 PT/INR, D-dimer PT 12.2 Seconds (9.4-12.1) H 04/30/18 00:15 - Impressions Impressions Chest CTA 05/01/18 09:57 IMPRESSION: 1. Acute pulmonary embolism with a moderate clot burden. 2. Evidence of cardiomegaly and right heart strain. 3. Bilateral pleural effusions moderate on the right and small on the left with bilateral lower lobe atelectatic changes. Findings discussed with Dr. Ross May 01, 2018 at 11:50 a.m. D/ / 05/01/2018 11:50:57 Nu Reed MD / keke Interpreting Provider: Nu Reed MD - VTE Documentation of Mechanical Device: Graduated compression elastic hosiery Consult Discharge Plan - Plan Referrals: NONE,PCP [Primary Care Provider] - Leodan Marquez [Family Provider] - (3) Leukocytosis Qualifiers: Leukocytosis type: unspecified Qualified Code(s): D72.829 - Elevated white blood cell count, unspecified (6) Acute pulmonary embolism Qualifiers: Pulmonary embolism type: other Acute cor pulmonale presence: without acute cor pulmonale Qualified Code(s): I26.99 - Other pulmonary embolism without acute cor pulmonale
--- NOTE | 2018-05-02 13:03 | Cardiology Progress Note ---
Date of Encounter: 05/02/18 Time of Encounter: 13:00 Assessment and Plan (1) Acute pulmonary embolism Current Visit: Yes Status: Acute Pulmonary embolism noted on CT. Hemodynamically, patient remained stable. Normal RV function per TTE report. Continue anticoagulation. Transition to oral anticoagulation when able. Qualifiers: Pulmonary embolism type: other Acute cor pulmonale presence: without acute cor pulmonale Qualified Code(s): I26.99 - Other pulmonary embolism without acute cor pulmonale (2) Atrial fibrillation with rapid ventricular response Current Visit: Yes Status: Acute Atrial fibrillation in the setting of acute pulmonary embolism. Heart rate is improved, but she remains mildly tachycardic. HR 90s-110s. Will change Cardizem drip to oral Cardizem. Continue beta mia therapy. We will titrate these medications as needed for better heart rate control. Continue heparin drip. Transition to oral anticoagulation for PE and atrial fibrillation prior to discharge. If remains in atrial fibrillation despite treatment of PE, will consider cardioversion in the future. (3) Elevated troponin Current Visit: Yes Status: Acute Minimal troponin elevation in the setting of tachycardia and pulmonary embolism. Presentation is not consistent with ACS. Continue treatment as above. (4) Abnormal echocardiogram Current Visit: Yes Status: Acute Possible reduced LV function in setting of AF with RVR. Repeat echocardiogram tomorrow to re-evaluate. Discussion w patient/family: The assessment and plan as outlined above was discussed with the patient and/or family members who expressed understanding and agreement. All questions were answered. Thank you for involving us in the care of your patient. Please call with any questions. Subjective Principal diagnosis: Atrial fibrillation Interval history: Atrial fibrillation remains. Overall, heart rate is better controlled, but she remains mildly tachycardic. Mild dyspnea continues, but appears improved from yesterday. No chest pain reported. Patient appears quite comfortable today. Objective Vital Signs, Last 4 Hours Temp Pulse Resp BP Pulse Ox 05/02/18 12:31 96.5 F L 104 18 114/82 94 05/02/18 10:54 18 94 General: Conversant, No Apparent Distress HEENT: Atraumatic, Normocephaly, Mucus Membranes Moist Neck: No JVD Cardiac: Other (Irregular rate and rhythm. No murmurs.) Lungs: Other (Shallow, no rales or rhonchi. No wheezing.) Neuro: Alert and responsive, No focal deficits noted Abdomen: Soft, Non-Tender Skin: No rashes noted on visualized skin Musculoskeletal: No Chest Wall Tenderness Extremities: No Clubbing, No Cyanosis, No Edema Results 05/02/18 03:23 05/02/18 03:23 Lab Results 05/01/18 05/02/18 05/02/18 13:15 03:23 03:23 WBC 13.1 H Hgb 12.9 Hct 39.9 Plt Count 236 Sodium 140 Potassium 3.7 Chloride 109 H Carbon Dioxide 22 L BUN 23 Creatinine 0.83 Glucose 131 H Calcium 8.8 B-Natriuretic Peptide 316 H - Imaging and Cardiology Echo: report reviewed - VTE Documentation of Mechanical Device: Graduated compression elastic hosiery Consult Discharge Plan - Plan Referrals: NONE,PCP [Primary Care Provider] - Leodan Marquez [Family Provider] - Prescriptions: Apixaban [Eliquis] 5 mg PO AD #1 tab.ds.pk
[2018-05-02] MEDS ORDERED: Diltiazem CD (24hr) 240 MG CAPSULE PO SCH (13:15)
--- NOTE | 2018-05-02 23:38 | Event Note ---
Date of Encounter: 05/02/18 Time of Encounter: 22:30 Alerted by pts. nurse RY Vega that pts. Cardizem drip was active and running at 10/HR. Pt. had been started on PO Cardizem dosing at approx 13:15 today. Pts. HR still in 110s to 120s. Quintin consulted Dr. Ochoa for clarification on Cardizem drip since PO Cardizem had been started. Original order was to DC drip 30 minutes after PO dose given. D/t pts. tachycardia, Dr. Ochoa's recommendation was to stop PO dosing and continue drip. I appreciate the consult and recommendations as always.
[2018-05-03] MEDS: Doxycycline 100 MG in 0.9 % Sodium Chloride Mini Bag 100 ML IVPB SCH (01:16)
[2018-05-03] MEDS: *HR* LORazepam 0.5 MG TABLET PO PRN ×2 (01:38→21:45)
[2018-05-03] MEDS: Levalbuterol Neb 1.25 MG/3 ML IH SCH ×4 (03:32→21:59)
[2018-05-03 05:27] LABS: Basophils # 0.1 K/mcL (0.0-0.2); Basophils % 0.4 %; Eosinophils # 0.1 K/mcL (0.0-0.6); Eosinophils % 0.8 %; Hematocrit 36.6 % (35.3-44.9); Immature Granulocytes % 0.6 % (0-4); Lymphocytes # 1.6 K/mcL (0.6-4.6); Lymphocytes % 13.9 %; Mean Corpuscular HGB Conc 32.8 g/dL (31.6-35.5); Mean Corpuscular Hemoglobin 30.6 pg (28.0-33.3); Mean Corpuscular Volume 93.4 fL (83.0-100.0); Mean Platelet Volume 10.8 fL (9.4-12.4); Monocytes % 8.6 %; Neutrophils # 8.8 K/mcL (1.6-8.9); Platelet Count 240 K/mcL (140-400); Red Blood Count 3.92 M/mcL (3.82-4.97); Red Cell Distribution Width 14.5 % (11.5-14.5); Segmented Neutrophils % 75.7 %
[2018-05-03 05:46] LABS: BUN/Creatinine Ratio 33 (6-26); Blood Urea Nitrogen 27 mg/dL (8-23); Calcium 8.9 mg/dL (8.6-10.3); Carbon Dioxide 23 mEq/L (23-29); Chloride 107 mEq/L (98-107); Glucose 127 mg/dL (70-105); Osmolality,Calculated 297 (280-300); Potassium 3.3 mEq/L (3.5-5.1); Sodium 140 mEq/L (136-145); eGFR For Non-African Americans > 60 (> 60)
[2018-05-03] MEDS: Heparin 25,000 UNIT/500 ML D5W 25,000 UNIT/500 ML BAG IVC SCH (06:25)
[2018-05-03] MEDS: Furosemide 40 MG/4 ML VIAL IVP SCH ×3 (08:26→16:26)
[2018-05-03] MEDS: Doxycycline 100 MG CAPSULE PO SCH ×2 (08:26→20:09)
[2018-05-03] MEDS: predniSONE 20 MG TABLET PO SCH (08:26)
[2018-05-03] MEDS: Metoprolol XL (24 HR) Succ 25 MG TAB.ER.24H PO SCH ×2 (08:26→20:09)
[2018-05-03] MEDS ORDERED: Diltiazem CD (24hr) 180 MG CAPSULE PO SCH (10:45)
--- NOTE | 2018-05-03 10:46 | Cardiology Progress Note ---
Date of Encounter: 05/03/18 Time of Encounter: 10:00 Assessment and Plan (1) Acute pulmonary embolism Current Visit: Yes Status: Acute Pulmonary embolism noted on CT. Hemodynamically, patient remained stable. Normal RV function per TTE report. Repeat TTE is pending. Continue anticoagulation. Transition to oral anticoagulation when able. Noted Eliquis sent to her pharmacy. If affordable she will need 10 mg BID for the first week and then 5 mg BID. Qualifiers: Pulmonary embolism type: other Acute cor pulmonale presence: without acute cor pulmonale Qualified Code(s): I26.99 - Other pulmonary embolism without acute cor pulmonale (2) Atrial fibrillation with rapid ventricular response Current Visit: Yes Status: Acute Atrial fibrillation in the setting of acute pulmonary embolism. Heart rate is improved, with AVg HR 96 bpm over last 12 hours. Patient was not successfully converted to oral cardizem yesterday. She is currently on 5 mg HR. HR elevated after ambulating in room although over all avg 98. WIll start her on 180 mg daily. Increase as needed. Continue beta mia therapy. Continue heparin drip. Transition to oral anticoagulation for PE and atrial fibrillation prior to discharge. If remains in atrial fibrillation despite treatment of PE, will consider cardioversion in the out-pt setting. (3) Elevated troponin Current Visit: Yes Status: Acute Minimal troponin elevation in the setting of tachycardia and pulmonary embolism. Presentation is not consistent with ACS. Continue treatment as above. (4) Abnormal echocardiogram Current Visit: Yes Status: Acute Possible reduced LV function in setting of AF with RVR. Repeat echocardiogram today is pending. Discussion w patient/family: The assessment and plan as outlined above was discussed with the patient and/or family members who expressed understanding and agreement. All questions were answered. Thank you for involving us in the care of your patient. Please call with any questions. Subjective Principal diagnosis: Atrial fibrillation Interval history: Patient ambulating in room. Denies SOB or chest pain. Objective Vital Signs, Last 4 Hours BP 05/03/18 07:06 120/69 General: Conversant, No Apparent Distress HEENT: Atraumatic, Normocephaly, Mucus Membranes Moist Neck: No JVD, Normal carotid pulses Cardiac: Other (Irregularly irregualr) Lungs: Normal Breath Sounds, No Wheeze, Rales, Rhonchi Neuro: Alert and responsive, No focal deficits noted Abdomen: Soft, Non-Tender Skin: No rashes noted on visualized skin Musculoskeletal: No Chest Wall Tenderness Extremities: No Clubbing, No Cyanosis, No Edema, Normal Pulses Results 05/03/18 04:35 05/03/18 04:35 Lab Results 05/03/18 05/03/18 04:35 04:35 WBC 11.7 H Hgb 12.0 Hct 36.6 Plt Count 240 Sodium 140 Potassium 3.3 L Chloride 107 Carbon Dioxide 23 BUN 27 H Creatinine 0.83 Glucose 127 H Calcium 8.9 - Imaging and Cardiology Echo: pending, report reviewed - EKG Interpretation EKG results cardiology: personally reviewed - VTE Documentation of Mechanical Device: Graduated compression elastic hosiery Consult Discharge Plan - Plan Referrals: NONE,PCP [Primary Care Provider] - Leodan Marquez [Family Provider] - Prescriptions: Apixaban [Eliquis] 5 mg PO AD #1 tab.ds.pk
--- NOTE | 2018-05-03 12:08 | Internal Med Progress Note ---
Hospitalist Progress Note - Encounter Date of Encounter: 05/03/18 Time of Encounter: 12:17 - Subjective Interval History: No acute events. States feeling better after heart rate controlled. She is still on oxygen. - Exam Vitals: Temp Pulse Resp BP Pulse Ox 97.5 F L 86 16 120/69 96 05/03/18 06:24 05/03/18 06:24 05/03/18 10:43 05/03/18 07:06 05/03/18 10:43 Exam: General: Well-developed female, some labored breathing with minimal exertion noted. Skin: Pale and dry, diaphoretic Neck: No lymphadenopathy. No JVD. No carotid bruits. No palpable thyroid. Chest: fine rales at bases, faint exp wheezing, good air exchange. Heart: Regular rate, irregular rhythm Extremities: No clubbing, cyanosis. No calf tenderness. Trace bipedal edema Neurological: Awake, alert and oriented to person, place and time. No focal deficits. - Assessment and Plan (1) Acute respiratory failure with hypoxia Current Visit: Yes Status: Acute Assessment and Plan: Patient has rales on exam this morning and faint wheezing. Currently requires 4 L O2 which she does not require O2 at home. Chest x-ray on admission shows right lower lobe opacity that could be atelectasis, pleural fluid, or underlycin pneumonia. Trace bipedal edema on exam. Has history of second hand smoke but not tobacco user. No known lung disease. Secondary to fluid overload, afrib with RVR, and acute pulmonary embolism - Continue IV Lasix BID - Monitor I/Os - Continue Doxycycline - Repeat echo pending - Wean O2 as tolerated - Incentive spirometery - Cardiology following, recommendations appreciated. - Continue heparin drip. - Pulmonology was consulted and agreed with current therapy and recommended Heme /Onc eval. They have been consulted. (2) Acute pulmonary embolism Current Visit: Yes Status: Acute Assessment and Plan: See plan as above. Likely this is unprovoked DVT Continue heparin drip. Will consult Heme/Onc for further recommendations. - Will laughlin check NOACs and coumadin for discharge planning. - Currently laughlin checking Eliquis - Hematology/Onc eval. (3) Atrial fibrillation with rapid ventricular response Current Visit: Yes Status: Acute Assessment and Plan: Newly diagnosed however based on her history it seems to have been present for a while. She just never sought medical attention. Now she presents in a highly decompensated state that could potentially lead to a functional heart failure state. [id number] score 2 (age/sex). Continue diltiazem drip and titrate to goal HR <100. Continue heparin drip Continue metoprolol succinate 25mg daily once able to come off the drip. TTE had poor visualization. Recommends repeat with enhancement, so will place for echo with definity. Cardiology following, recommendations appreciated. (4) Leukocytosis Current Visit: Yes Status: Acute Assessment and Plan: Unclear etiology. No clinical signs/symptoms of infection present. May be stress response or pneumonia. WBC on admission elevated at 14k slowly trended down to 11.7. CXR shows atelectasis on left but possible pneumonia. She has some chest congestion. Likely due to acute PE, continue IV heparin. (5) Elevated troponin Current Visit: Yes Status: Acute Assessment and Plan: In the setting of afib w/ rvr. Patient w/o chest pain. Likely secondary to demand ischemia. Will continue to trend as we control her heart rate. (6) Superficial vein thrombosis Current Visit: Yes Status: Acute Assessment and Plan: Left distal superficial femoral vein showed partially occlusive thrombus on venous duplex. Currently on heparin drip. - Time Spent with Patient Total time spent is greater than 50% in coordination of care (as documented) at patient's floor/unit and/or counseling patient: Internal Medicine: Result - Labs CBC & Chem 7: 05/03/18 04:35 05/03/18 04:35 Labs: Short CBC 05/03/18 Range/Units 04:35 WBC 11.7 H (4.3-11.1) K/mcL Hgb 12.0 (11.5-15.4) g/dL Hct 36.6 (35.3-44.9) % Plt Count 240 (140-400) K/mcL Neutrophils # 8.8 (1.6-8.9) K/mcL BMP 05/03/18 04:35 Sodium 140 Potassium 3.3 L Chloride 107 Carbon Dioxide 23 BUN 27 H Creatinine 0.83 Glucose 127 H Calcium 8.9 - ABG Interpretation ABG results: ABG ABG pH 7.40 pH Units (7.32-7.45) 05/01/18 12:50 ABG pCO2 33 mmHg (35-45) L 05/01/18 12:50 ABG pO2 76 mmHg (85-104) L 05/01/18 12:50 ABG O2 Saturation 95 % (95-98) 05/01/18 12:50 PT/INR, D-dimer PT 12.2 Seconds (9.4-12.1) H 04/30/18 00:15 - VTE Documentation of Mechanical Device: Graduated compression elastic hosiery Consult Discharge Plan - Plan Referrals: NONE,PCP [Primary Care Provider] - Leodan Marquez [Family Provider] - Prescriptions: Apixaban [Eliquis] 5 mg PO AD #1 tab.ds.pk (2) Acute pulmonary embolism Qualifiers: Pulmonary embolism type: other Acute cor pulmonale presence: without acute cor pulmonale Qualified Code(s): I26.99 - Other pulmonary embolism without acute cor pulmonale (4) Leukocytosis Qualifiers: Leukocytosis type: unspecified Qualified Code(s): D72.829 - Elevated white blood cell count, unspecified
--- NOTE | 2018-05-03 12:20 | Oncology Inp Consult Note ---
<Clayton Phillips - Last Filed: 05/03/18 18:03> Date of Encounter: 05/03/18 Time of Encounter: 11:50 Assessment and Plan (1) Acute pulmonary embolism Status: Acute Assessment and plan: Likely unprovoked DVT/PE. Currently on heparin drip, will discuss with Hematology team jail anticoagulation recommendations. See attending's complete recommendation as above. Qualifiers: Pulmonary embolism type: other Acute cor pulmonale presence: without acute cor pulmonale Qualified Code(s): I26.99 - Other pulmonary embolism without acute cor pulmonale - Data of Consult Requesting Physician: Dalton Ross MD Primary Care Provider: PCP NONE Family Provider: [employer]Conversion Provider - Consult Narrative Reason for consult: PE History of present illness: Ms. Giovanna Beckett is a 72-year-old woman who presented to [facility] ER with a complaint of 2 weeks of shortness of breath without associated chest pain. In the ED she was found to have new onset atrial fibrillation with rapid ventricular rate, seen by cardiology and started on intravenous and oral diltiazem. She states continued dyspnea, though somewhat improved from admission. No chest pain. Notes chronic GERD/reflux, denies abdominal pain. Denies self and family history of blood clots or bleeding disorders. Denies recent travel, injury, or change in activity level. Never been on antiplatelet or anticoagulant therapy. Past Med Surg Social Fam HX - Past Medical History Medical history: no medical history Additional medical history: kidney stones Psychiatric history: no psych history - Past Surgical History Surgical History: cholecystectomy - Social History Smoking Status: Never smoker Smokeless Tobacco Status: No Alcohol use: none Drug use: none Medications and Allergies Multivit-Min/Iron/Folic Acid/K [Adults Multivitamin Tablet] 1 tab PO DAILY 04/30 [History] Apixaban [Eliquis] 5 mg PO AD #1 tab.ds.pk 05/03/18 [Rx] 3 Allergy/AdvReac Type Severity Reaction Status Date / Time No Known Allergies Allergy Verified 04/29/18 23:29 All systems: reviewed and no additional remarkable complaints except as stated Oncology - Exam - Constitutional Vitals: Temp Pulse Resp BP Pulse Ox 97.5 F L 86 16 120/69 96 05/03/18 06:24 05/03/18 06:24 05/03/18 10:43 05/03/18 07:06 05/03/18 10:43 Exam: Vitals: Reviewed General: Well-developed female, lying in bed, no acute distress. Skin: warm, dry, intact. HEENT: Slightly dry mucous membranes. No conjunctivae pallor. Neck: Supple. Chest: Normal thoracic expansion. Normal breath sounds. Clear to auscultation. Heart: regularly irregular. Abdomen: soft and non-tender to palpation. Nondistended. Extremities: No clubbing, cyanosis, erythema, or edema. No calf tenderness. Normal distal pulses. Neurological: Awake, alert and oriented to person, place and time. No focal deficits. Psych: Affect appropriate. Oncology - Results Labs: 3 05/03/18 05/03/18 05/03/18 10:31 04:35 04:35 WBC 11.7 H RBC 3.92 Hgb 12.0 Hct 36.6 MCV 93.4 MCH 30.6 MCHC 32.8 RDW 14.5 Plt Count 240 MPV 10.8 Immature Gran % 0.6 Seg Neutrophils % 75.7 Lymphocytes % 13.9 Monocytes % 8.6 Eosinophils % 0.8 Basophils % 0.4 Neutrophils # 8.8 Lymphocytes # 1.6 Monocytes # 1.0 Eosinophils # 0.1 Basophils # 0.1 Heparin Anti-Xa, Unfract 0.33 ABG pH ABG pCO2 ABG pO2 ABG HCO3 ABG Total CO2 ABG O2 Saturation ABG Base Excess O2 Delivery Device Inspired O2 Sodium 140 Potassium 3.3 L Chloride 107 Carbon Dioxide 23 BUN 27 H Creatinine 0.83 Est GFR ( Amer) > 60 Est GFR (Non-Af Amer) > 60 BUN/Creatinine Ratio 33 H Glucose 127 H POC Glucose Est Mean Plasma Glucose Hemoglobin A1c Calculated Osmolality 297 Lactic Acid Calcium 8.9 Total Bilirubin Direct Bilirubin Indirect Bilirubin AST ALT Alkaline Phosphatase Troponin I B-Natriuretic Peptide Serum Total Protein Albumin Globulin Albumin/Globulin Ratio Triglycerides Cholesterol LDL Cholesterol, Calc VLDL Cholesterol, Calc HDL Cholesterol Cholesterol/HDL Ratio 3 05/02/18 05/02/18 05/02/18 10:02 03:23 03:23 WBC RBC Hgb Hct MCV MCH MCHC RDW Plt Count MPV Immature Gran % Seg Neutrophils % Lymphocytes % Monocytes % Eosinophils % Basophils % Neutrophils # Lymphocytes # Monocytes # Eosinophils # Basophils # Heparin Anti-Xa, Unfract 0.49 0.70 ABG pH ABG pCO2 ABG pO2 ABG HCO3 ABG Total CO2 ABG O2 Saturation ABG Base Excess O2 Delivery Device Inspired O2 Sodium Potassium Chloride Carbon Dioxide BUN Creatinine Est GFR ( Amer) Est GFR (Non-Af Amer) BUN/Creatinine Ratio Glucose POC Glucose Est Mean Plasma Glucose Hemoglobin A1c Calculated Osmolality Lactic Acid 1.0 Calcium Total Bilirubin Direct Bilirubin Indirect Bilirubin AST ALT Alkaline Phosphatase Troponin I B-Natriuretic Peptide Serum Total Protein Albumin Globulin Albumin/Globulin Ratio Triglycerides Cholesterol LDL Cholesterol, Calc VLDL Cholesterol, Calc HDL Cholesterol Cholesterol/HDL Ratio 3 05/02/18 05/02/18 05/01/18 03:23 03:23 21:55 WBC 13.1 H RBC 4.22 Hgb 12.9 Hct 39.9 MCV 94.5 MCH 30.6 MCHC 32.3 RDW 14.0 Plt Count 236 MPV 10.3 Immature Gran % 0.4 Seg Neutrophils % 77.9 Lymphocytes % 12.9 Monocytes % 8.3 Eosinophils % 0.2 Basophils % 0.3 Neutrophils # 10.2 H Lymphocytes # 1.7 Monocytes # 1.1 Eosinophils # 0.0 Basophils # 0.0 Heparin Anti-Xa, Unfract ABG pH ABG pCO2 ABG pO2 ABG HCO3 ABG Total CO2 ABG O2 Saturation ABG Base Excess O2 Delivery Device Inspired O2 Sodium 140 Potassium 3.7 Chloride 109 H Carbon Dioxide 22 L BUN 23 Creatinine 0.83 Est GFR ( Amer) > 60 Est GFR (Non-Af Amer) > 60 BUN/Creatinine Ratio 28 H Glucose 131 H POC Glucose Est Mean Plasma Glucose Hemoglobin A1c Calculated Osmolality 295 Lactic Acid 2.5 H Calcium 8.8 Total Bilirubin Direct Bilirubin Indirect Bilirubin AST ALT Alkaline Phosphatase Troponin I B-Natriuretic Peptide Serum Total Protein Albumin Globulin Albumin/Globulin Ratio Triglycerides Cholesterol LDL Cholesterol, Calc VLDL Cholesterol, Calc HDL Cholesterol Cholesterol/HDL Ratio 3 05/01/18 05/01/18 05/01/18 18:56 13:15 12:50 WBC RBC Hgb Hct MCV MCH MCHC RDW Plt Count MPV Immature Gran % Seg Neutrophils % Lymphocytes % Monocytes % Eosinophils % Basophils % Neutrophils # Lymphocytes # Monocytes # Eosinophils # Basophils # Heparin Anti-Xa, Unfract 0.20 L ABG pH 7.40 ABG pCO2 33 L ABG pO2 76 L ABG HCO3 20 L ABG Total CO2 21 ABG O2 Saturation 95 ABG Base Excess -4 L O2 Delivery Device Cannula Inspired O2 36.0 Sodium Potassium Chloride Carbon Dioxide BUN Creatinine Est GFR ( Amer) Est GFR (Non-Af Amer) BUN/Creatinine Ratio Glucose POC Glucose Est Mean Plasma Glucose Hemoglobin A1c Calculated Osmolality Lactic Acid Calcium Total Bilirubin Direct Bilirubin Indirect Bilirubin AST ALT Alkaline Phosphatase Troponin I B-Natriuretic Peptide 316 H Serum Total Protein Albumin Globulin Albumin/Globulin Ratio Triglycerides Cholesterol LDL Cholesterol, Calc VLDL Cholesterol, Calc HDL Cholesterol Cholesterol/HDL Ratio 3 05/01/18 05/01/18 04/30/18 04:46 04:46 19:03 WBC 12.2 H RBC 4.30 Hgb 13.0 Hct 40.2 MCV 93.5 MCH 30.2 MCHC 32.3 RDW 13.8 Plt Count 259 MPV 10.5 Immature Gran % 0.3 Seg Neutrophils % 75.8 Lymphocytes % 14.1 Monocytes % 8.6 Eosinophils % 0.7 Basophils % 0.5 Neutrophils # 9.3 H Lymphocytes # 1.7 Monocytes # 1.1 Eosinophils # 0.1 Basophils # 0.1 Heparin Anti-Xa, Unfract 0.37 ABG pH ABG pCO2 ABG pO2 ABG HCO3 ABG Total CO2 ABG O2 Saturation ABG Base Excess O2 Delivery Device Inspired O2 Sodium 138 Potassium 3.4 L Chloride 109 H Carbon Dioxide 20 L BUN 22 Creatinine 0.86 Est GFR ( Amer) > 60 Est GFR (Non-Af Amer) > 60 BUN/Creatinine Ratio 26 Glucose 132 H POC Glucose Est Mean Plasma Glucose Hemoglobin A1c Calculated Osmolality 291 Lactic Acid Calcium 8.4 L Total Bilirubin Direct Bilirubin Indirect Bilirubin AST ALT Alkaline Phosphatase Troponin I B-Natriuretic Peptide Serum Total Protein Albumin Globulin Albumin/Globulin Ratio Triglycerides Cholesterol LDL Cholesterol, Calc VLDL Cholesterol, Calc HDL Cholesterol Cholesterol/HDL Ratio 3 04/30/18 04/30/18 04/30/18 12:42 11:02 06:21 WBC RBC Hgb Hct MCV MCH MCHC RDW Plt Count MPV Immature Gran % Seg Neutrophils % Lymphocytes % Monocytes % Eosinophils % Basophils % Neutrophils # Lymphocytes # Monocytes # Eosinophils # Basophils # Heparin Anti-Xa, Unfract 0.51 1.09 H* ABG pH ABG pCO2 ABG pO2 ABG HCO3 ABG Total CO2 ABG O2 Saturation ABG Base Excess O2 Delivery Device Inspired O2 Sodium Potassium Chloride Carbon Dioxide BUN Creatinine Est GFR ( Amer) Est GFR (Non-Af Amer) BUN/Creatinine Ratio Glucose POC Glucose 133 H Est Mean Plasma Glucose Hemoglobin A1c Calculated Osmolality Lactic Acid Calcium Total Bilirubin Direct Bilirubin Indirect Bilirubin AST ALT Alkaline Phosphatase Troponin I B-Natriuretic Peptide Serum Total Protein Albumin Globulin Albumin/Globulin Ratio Triglycerides Cholesterol LDL Cholesterol, Calc VLDL Cholesterol, Calc HDL Cholesterol Cholesterol/HDL Ratio 3 04/30/18 04/30/18 04/30/18 06:21 06:21 06:21 WBC RBC Hgb Hct MCV MCH MCHC RDW Plt Count MPV Immature Gran % Seg Neutrophils % Lymphocytes % Monocytes % Eosinophils % Basophils % Neutrophils # Lymphocytes # Monocytes # Eosinophils # Basophils # Heparin Anti-Xa, Unfract ABG pH ABG pCO2 ABG pO2 ABG HCO3 ABG Total CO2 ABG O2 Saturation ABG Base Excess O2 Delivery Device Inspired O2 Sodium 138 Potassium 4.4 Chloride 111 H Carbon Dioxide 18 L BUN 21 Creatinine 0.99 Est GFR ( Amer) > 60 Est GFR (Non-Af Amer) 55 L BUN/Creatinine Ratio 21 Glucose 185 H POC Glucose Est Mean Plasma Glucose 114 Hemoglobin A1c 5.6 Calculated Osmolality 294 Lactic Acid Calcium 8.5 L Total Bilirubin 0.9 Direct Bilirubin 0.2 Indirect Bilirubin 0.7 AST 20 ALT 18 Alkaline Phosphatase 62 Troponin I 0.07 H* B-Natriuretic Peptide Serum Total Protein 6.5 Albumin 3.7 Globulin 2.8 Albumin/Globulin Ratio 1.3 Triglycerides 78 Cholesterol 147 LDL Cholesterol, Calc 90 VLDL Cholesterol, Calc 16 HDL Cholesterol 41 Cholesterol/HDL Ratio 3.6 3 04/30/18 04/30/18 06:21 03:30 WBC 14.0 H RBC 4.41 Hgb 13.6 Hct 41.4 MCV 93.9 MCH 30.8 MCHC 32.9 RDW 13.8 Plt Count 281 MPV 10.5 Immature Gran % 0.4 Seg Neutrophils % 83.6 Lymphocytes % 10.4 Monocytes % 5.1 Eosinophils % 0.2 Basophils % 0.3 Neutrophils # 11.7 H Lymphocytes # 1.5 Monocytes # 0.7 Eosinophils # 0.0 Basophils # 0.0 Heparin Anti-Xa, Unfract ABG pH ABG pCO2 ABG pO2 ABG HCO3 ABG Total CO2 ABG O2 Saturation ABG Base Excess O2 Delivery Device Inspired O2 Sodium Potassium Chloride Carbon Dioxide BUN Creatinine Est GFR ( Amer) Est GFR (Non-Af Amer) BUN/Creatinine Ratio Glucose POC Glucose 126 H Est Mean Plasma Glucose Hemoglobin A1c Calculated Osmolality Lactic Acid Calcium Total Bilirubin Direct Bilirubin Indirect Bilirubin AST ALT Alkaline Phosphatase Troponin I B-Natriuretic Peptide Serum Total Protein Albumin Globulin Albumin/Globulin Ratio Triglycerides Cholesterol LDL Cholesterol, Calc VLDL Cholesterol, Calc HDL Cholesterol Cholesterol/HDL Ratio Consult Discharge Plan - Plan Referrals: Lashell Rogers, BINGO CASHIER [Advanced Practice Nurse] - 05/18/18 9:00 am (this is located at the [facility] please call with any questions or concerns) NONE,PCP [Primary Care Provider] - (talked with patient she wants to set up her own pcp appointment i gave her the [phone] card and explained how for her to go about getting a pcp but she refused for me to set her up now) Prescriptions: Apixaban [Eliquis] 5 mg PO AD #1 tab.ds.pk <Megan Man S - Last Filed: 05/04/18 19:05> Date of Encounter: 05/03/18 - Data of Consult Requesting Physician: Dalton Ross MD Primary Care Provider: PCP NONE Family Provider: Liam Provider - Consult Narrative History of present illness: Ms. Beckett is a 72 year old female Oncology - Exam - Constitutional Vitals: Temp Pulse Resp BP Pulse Ox 97.7 F 63 16 133/103 96 05/03/18 15:40 05/03/18 15:40 05/03/18 16:03 05/03/18 15:40 05/03/18 16:03 Oncology - Results Labs: 3 05/03/18 05/03/18 05/03/18 10:31 04:35 04:35 WBC 11.7 H RBC 3.92 Hgb 12.0 Hct 36.6 MCV 93.4 MCH 30.6 MCHC 32.8 RDW 14.5 Plt Count 240 MPV 10.8 Immature Gran % 0.6 Seg Neutrophils % 75.7 Lymphocytes % 13.9 Monocytes % 8.6 Eosinophils % 0.8 Basophils % 0.4 Neutrophils # 8.8 Lymphocytes # 1.6 Monocytes # 1.0 Eosinophils # 0.1 Basophils # 0.1 Heparin Anti-Xa, Unfract 0.33 ABG pH ABG pCO2 ABG pO2 ABG HCO3 ABG Total CO2 ABG O2 Saturation ABG Base Excess O2 Delivery Device Inspired O2 Sodium 140 Potassium 3.3 L Chloride 107 Carbon Dioxide 23 BUN 27 H Creatinine 0.83 Est GFR ( Amer) > 60 Est GFR (Non-Af Amer) > 60 BUN/Creatinine Ratio 33 H Glucose 127 H POC Glucose Est Mean Plasma Glucose Hemoglobin A1c Calculated Osmolality 297 Lactic Acid Calcium 8.9 Total Bilirubin Direct Bilirubin Indirect Bilirubin AST ALT Alkaline Phosphatase Troponin I B-Natriuretic Peptide Serum Total Protein Albumin Globulin Albumin/Globulin Ratio Triglycerides Cholesterol LDL Cholesterol, Calc VLDL Cholesterol, Calc HDL Cholesterol Cholesterol/HDL Ratio 3 05/02/18 05/02/18 05/02/18 10:02 03:23 03:23 WBC RBC Hgb Hct MCV MCH MCHC RDW Plt Count MPV Immature Gran % Seg Neutrophils % Lymphocytes % Monocytes % Eosinophils % Basophils % Neutrophils # Lymphocytes # Monocytes # Eosinophils # Basophils # Heparin Anti-Xa, Unfract 0.49 0.70 ABG pH ABG pCO2 ABG pO2 ABG HCO3 ABG Total CO2 ABG O2 Saturation ABG Base Excess O2 Delivery Device Inspired O2 Sodium Potassium Chloride Carbon Dioxide BUN Creatinine Est GFR ( Amer) Est GFR (Non-Af Amer) BUN/Creatinine Ratio Glucose POC Glucose Est Mean Plasma Glucose Hemoglobin A1c Calculated Osmolality Lactic Acid 1.0 Calcium Total Bilirubin Direct Bilirubin Indirect Bilirubin AST ALT Alkaline Phosphatase Troponin I B-Natriuretic Peptide Serum Total Protein Albumin Globulin Albumin/Globulin Ratio Triglycerides Cholesterol LDL Cholesterol, Calc VLDL Cholesterol, Calc HDL Cholesterol Cholesterol/HDL Ratio 3 05/02/18 05/02/18 05/01/18 03:23 03:23 21:55 WBC 13.1 H RBC 4.22 Hgb 12.9 Hct 39.9 MCV 94.5 MCH 30.6 MCHC 32.3 RDW 14.0 Plt Count 236 MPV 10.3 Immature Gran % 0.4 Seg Neutrophils % 77.9 Lymphocytes % 12.9 Monocytes % 8.3 Eosinophils % 0.2 Basophils % 0.3 Neutrophils # 10.2 H Lymphocytes # 1.7 Monocytes # 1.1 Eosinophils # 0.0 Basophils # 0.0 Heparin Anti-Xa, Unfract ABG pH ABG pCO2 ABG pO2 ABG HCO3 ABG Total CO2 ABG O2 Saturation ABG Base Excess O2 Delivery Device Inspired O2 Sodium 140 Potassium 3.7 Chloride 109 H Carbon Dioxide 22 L BUN 23 Creatinine 0.83 Est GFR ( Amer) > 60 Est GFR (Non-Af Amer) > 60 BUN/Creatinine Ratio 28 H Glucose 131 H POC Glucose Est Mean Plasma Glucose Hemoglobin A1c Calculated Osmolality 295 Lactic Acid 2.5 H Calcium 8.8 Total Bilirubin Direct Bilirubin Indirect Bilirubin AST ALT Alkaline Phosphatase Troponin I B-Natriuretic Peptide Serum Total Protein Albumin Globulin Albumin/Globulin Ratio Triglycerides Cholesterol LDL Cholesterol, Calc VLDL Cholesterol, Calc HDL Cholesterol Cholesterol/HDL Ratio 3 05/01/18 05/01/18 05/01/18 18:56 13:15 12:50 WBC RBC Hgb Hct MCV MCH MCHC RDW Plt Count MPV Immature Gran % Seg Neutrophils % Lymphocytes % Monocytes % Eosinophils % Basophils % Neutrophils # Lymphocytes # Monocytes # Eosinophils # Basophils # Heparin Anti-Xa, Unfract 0.20 L ABG pH 7.40 ABG pCO2 33 L ABG pO2 76 L ABG HCO3 20 L ABG Total CO2 21 ABG O2 Saturation 95 ABG Base Excess -4 L O2 Delivery Device Cannula Inspired O2 36.0 Sodium Potassium Chloride Carbon Dioxide BUN Creatinine Est GFR ( Amer) Est GFR (Non-Af Amer) BUN/Creatinine Ratio Glucose POC Glucose Est Mean Plasma Glucose Hemoglobin A1c Calculated Osmolality Lactic Acid Calcium Total Bilirubin Direct Bilirubin Indirect Bilirubin AST ALT Alkaline Phosphatase Troponin I B-Natriuretic Peptide 316 H Serum Total Protein Albumin Globulin Albumin/Globulin Ratio Triglycerides Cholesterol LDL Cholesterol, Calc VLDL Cholesterol, Calc HDL Cholesterol Cholesterol/HDL Ratio 3 05/01/18 05/01/18 04/30/18 04:46 04:46 19:03 WBC 12.2 H RBC 4.30 Hgb 13.0 Hct 40.2 MCV 93.5 MCH 30.2 MCHC 32.3 RDW 13.8 Plt Count 259 MPV 10.5 Immature Gran % 0.3 Seg Neutrophils % 75.8 Lymphocytes % 14.1 Monocytes % 8.6 Eosinophils % 0.7 Basophils % 0.5 Neutrophils # 9.3 H Lymphocytes # 1.7 Monocytes # 1.1 Eosinophils # 0.1 Basophils # 0.1 Heparin Anti-Xa, Unfract 0.37 ABG pH ABG pCO2 ABG pO2 ABG HCO3 ABG Total CO2 ABG O2 Saturation ABG Base Excess O2 Delivery Device Inspired O2 Sodium 138 Potassium 3.4 L Chloride 109 H Carbon Dioxide 20 L BUN 22 Creatinine 0.86 Est GFR ( Amer) > 60 Est GFR (Non-Af Amer) > 60 BUN/Creatinine Ratio 26 Glucose 132 H POC Glucose Est Mean Plasma Glucose Hemoglobin A1c Calculated Osmolality 291 Lactic Acid Calcium 8.4 L Total Bilirubin Direct Bilirubin Indirect Bilirubin AST ALT Alkaline Phosphatase Troponin I B-Natriuretic Peptide Serum Total Protein Albumin Globulin Albumin/Globulin Ratio Triglycerides Cholesterol LDL Cholesterol, Calc VLDL Cholesterol, Calc HDL Cholesterol Cholesterol/HDL Ratio 3 04/30/18 04/30/18 04/30/18 12:42 11:02 06:21 WBC RBC Hgb Hct MCV MCH MCHC RDW Plt Count MPV Immature Gran % Seg Neutrophils % Lymphocytes % Monocytes % Eosinophils % Basophils % Neutrophils # Lymphocytes # Monocytes # Eosinophils # Basophils # Heparin Anti-Xa, Unfract 0.51 1.09 H* ABG pH ABG pCO2 ABG pO2 ABG HCO3 ABG Total CO2 ABG O2 Saturation ABG Base Excess O2 Delivery Device Inspired O2 Sodium Potassium Chloride Carbon Dioxide BUN Creatinine Est GFR ( Amer) Est GFR (Non-Af Amer) BUN/Creatinine Ratio Glucose POC Glucose 133 H Est Mean Plasma Glucose Hemoglobin A1c Calculated Osmolality Lactic Acid Calcium Total Bilirubin Direct Bilirubin Indirect Bilirubin AST ALT Alkaline Phosphatase Troponin I B-Natriuretic Peptide Serum Total Protein Albumin Globulin Albumin/Globulin Ratio Triglycerides Cholesterol LDL Cholesterol, Calc VLDL Cholesterol, Calc HDL Cholesterol Cholesterol/HDL Ratio 3 04/30/18 04/30/18 04/30/18 06:21 06:21 06:21 WBC RBC Hgb Hct MCV MCH MCHC RDW Plt Count MPV Immature Gran % Seg Neutrophils % Lymphocytes % Monocytes % Eosinophils % Basophils % Neutrophils # Lymphocytes # Monocytes # Eosinophils # Basophils # Heparin Anti-Xa, Unfract ABG pH ABG pCO2 ABG pO2 ABG HCO3 ABG Total CO2 ABG O2 Saturation ABG Base Excess O2 Delivery Device Inspired O2 Sodium 138 Potassium 4.4 Chloride 111 H Carbon Dioxide 18 L BUN 21 Creatinine 0.99 Est GFR ( Amer) > 60 Est GFR (Non-Af Amer) 55 L BUN/Creatinine Ratio 21 Glucose 185 H POC Glucose Est Mean Plasma Glucose 114 Hemoglobin A1c 5.6 Calculated Osmolality 294 Lactic Acid Calcium 8.5 L Total Bilirubin 0.9 Direct Bilirubin 0.2 Indirect Bilirubin 0.7 AST 20 ALT 18 Alkaline Phosphatase 62 Troponin I 0.07 H* B-Natriuretic Peptide Serum Total Protein 6.5 Albumin 3.7 Globulin 2.8 Albumin/Globulin Ratio 1.3 Triglycerides 78 Cholesterol 147 LDL Cholesterol, Calc 90 VLDL Cholesterol, Calc 16 HDL Cholesterol 41 Cholesterol/HDL Ratio 3.6 3 04/30/18 04/30/18 06:21 03:30 WBC 14.0 H RBC 4.41 Hgb 13.6 Hct 41.4 MCV 93.9 MCH 30.8 MCHC 32.9 RDW 13.8 Plt Count 281 MPV 10.5 Immature Gran % 0.4 Seg Neutrophils % 83.6 Lymphocytes % 10.4 Monocytes % 5.1 Eosinophils % 0.2 Basophils % 0.3 Neutrophils # 11.7 H Lymphocytes # 1.5 Monocytes # 0.7 Eosinophils # 0.0 Basophils # 0.0 Heparin Anti-Xa, Unfract ABG pH ABG pCO2 ABG pO2 ABG HCO3 ABG Total CO2 ABG O2 Saturation ABG Base Excess O2 Delivery Device Inspired O2 Sodium Potassium Chloride Carbon Dioxide BUN Creatinine Est GFR ( Amer) Est GFR (Non-Af Amer) BUN/Creatinine Ratio Glucose POC Glucose 126 H Est Mean Plasma Glucose Hemoglobin A1c Calculated Osmolality Lactic Acid Calcium Total Bilirubin Direct Bilirubin Indirect Bilirubin AST ALT Alkaline Phosphatase Troponin I B-Natriuretic Peptide Serum Total Protein Albumin Globulin Albumin/Globulin Ratio Triglycerides Cholesterol LDL Cholesterol, Calc VLDL Cholesterol, Calc HDL Cholesterol Cholesterol/HDL Ratio - Attending Attestation 1. Patient admitted with acute shortness of breath. CT angiogram 05/01/2018 showed pulmonary embolism with significant clot burden Echocardiogram 05/01/2018 showed significantly dilated left atrium. Mild pulmonary hypertension. Also severely compromised left ventricular ejection fraction 2. Atrial fibrillation. Given left atrial dilatation she may have atrial fibrillation for a while but this was diagnosed during this admission. Cardiology following This is her first episode of venous thrombotic embolism and appears to be unprovoked. She needs long-term anticoagulation. Renal function normal creatinine 0.73. When she stable she can be transitioned to Elequis initially 10 mg twice a day for 7 days then 5 mg twice a day. CT abdomen and pelvis with IV contrast to rule out malignancy We will do factor V Leiden, prothrombin gene mutation and lupus anticoagulant Her CBC is unremarkable. Hemoglobin 12. D-dimer 1700. Inpatient Charges Provider: Dr. Fermin Man Consult - Inpatient Medicare Only: [id number]
[2018-05-03] MEDS ORDERED: Isovue-370 500 ML INFUS..BTL IV ONE (17:47)
[2018-05-03] MEDS: Apixaban 5 MG TABLET PO SCH (20:09)
[2018-05-03] MEDS ORDERED: *HR* Metoprolol 5 MG/5 ML VIAL IVP ONE (23:04)
[2018-05-04] MEDS: Levalbuterol Neb 1.25 MG/3 ML IH SCH ×4 (04:04→22:12)
--- NOTE | 2018-05-04 07:57 | Internal Med Progress Note ---
Hospitalist Progress Note - Encounter Date of Encounter: 05/04/18 Time of Encounter: 11:07 - Subjective Interval History: No acute events. States feeling better after heart rate controlled. She is still on oxygen. - Exam Vitals: Temp Pulse Resp BP Pulse Ox 98.0 F 88 16 125/76 88 05/04/18 07:32 05/04/18 07:32 05/04/18 07:32 05/04/18 07:32 05/04/18 04:05 Exam: General: Well-developed female, some labored breathing with minimal exertion noted. Skin: Pale and dry, diaphoretic Neck: No lymphadenopathy. No JVD. No carotid bruits. No palpable thyroid. Chest: fine rales at bases, fgood air exchange., no wheezing on today's exam Heart: Regular rate, irregular rhythm Extremities: No clubbing, cyanosis. No calf tenderness. Trace bipedal edema Neurological: Awake, alert and oriented to person, place and time. No focal deficits. - Assessment and Plan (1) Acute respiratory failure with hypoxia Current Visit: Yes Status: Acute Assessment and Plan: Patient has rales on exam this morning and faint wheezing. Currently requires 4 L O2 which she does not require O2 at home. Chest x-ray on admission shows right lower lobe opacity that could be atelectasis, pleural fluid, or underlycin pneumonia. Trace bipedal edema on exam. Has history of second hand smoke but not tobacco user. No known lung disease. Secondary to fluid overload, afrib with RVR, and acute pulmonary embolism Repeat echo 05/03: LVEF 45-50%with mild normal global LV systolic dysfunction. - Continue IV Lasix BID - Monitor I/Os - Continue Doxycycline - Wean O2 as tolerated - Incentive spirometery - Cardiology following, recommendations appreciated. - Pulmonology was consulted and agreed with current therapy and recommended Heme /Onc eval. They have been consulted - initial workup being done but patient would like to finish majority of workup of Heme/Onc outpatient. (2) Acute pulmonary embolism Current Visit: Yes Status: Acute Assessment and Plan: See plan as above. unprovoked DVT - Hematology/Onc eval, workup pending. Currently on Elquis, transitioned from heparin drip. (3) Atrial fibrillation with rapid ventricular response Current Visit: Yes Status: Acute Assessment and Plan: Newly diagnosed however based on her history it seems to have been present for a while. She just never sought medical attention. Now she presents in a highly decompensated state that could potentially lead to a functional heart failure state. [id number] score 2 (age/sex). Continue diltiazem drip and titrate to goal HR <100. Continue heparin drip Continue metoprolol succinate 25mg daily once able to come off the drip. Repeat echo 05/03: LVEF 45-50%with mild normal global LV systolic dysfunction. Cardiology following, recommendations appreciated. (4) Leukocytosis Current Visit: Yes Status: Acute (5) Elevated troponin Current Visit: Yes Status: Acute (6) Superficial vein thrombosis Current Visit: Yes Status: Acute - Time Spent with Patient Total time spent is greater than 50% in coordination of care (as documented) at patient's floor/unit and/or counseling patient: Internal Medicine: Result - Labs CBC & Chem 7: 05/04/18 09:19 05/04/18 09:19 - ABG Interpretation ABG results: ABG ABG pH 7.40 pH Units (7.32-7.45) 05/01/18 12:50 ABG pCO2 33 mmHg (35-45) L 05/01/18 12:50 ABG pO2 76 mmHg (85-104) L 05/01/18 12:50 ABG O2 Saturation 95 % (95-98) 05/01/18 12:50 PT/INR, D-dimer PT 12.2 Seconds (9.4-12.1) H 04/30/18 00:15 D-Dimer 1693 ng/mLFEU (0-500) H 05/03/18 18:03 - Impressions Impressions Echocardiogram Limited Views 05/02/18 13:09 Impressions: LVEF 45-50%. Mildly reduced to low normal global LV systolic dysfunction. - VTE Documentation of Mechanical Device: Graduated compression elastic hosiery Consult Discharge Plan - Plan Referrals: NONE,PCP [Primary Care Provider] - (talked with patient she wants to set up her own pcp appointment i gave her the [phone]-find card and explained how for her to go about getting a pcp but she refused for me to set her up now) Leodan Marquez [Family Provider] - Prescriptions: Apixaban [Eliquis] 5 mg PO AD #1 tab.ds.pk (2) Acute pulmonary embolism Qualifiers: Pulmonary embolism type: other Acute cor pulmonale presence: without acute cor pulmonale Qualified Code(s): I26.99 - Other pulmonary embolism without acute cor pulmonale (4) Leukocytosis Qualifiers: Leukocytosis type: unspecified Qualified Code(s): D72.829 - Elevated white blood cell count, unspecified
[2018-05-04] MEDS: Apixaban 5 MG TABLET PO SCH ×2 (09:32→20:07)
[2018-05-04] MEDS: predniSONE 20 MG TABLET PO SCH ×2 (09:33→10:06)
[2018-05-04] MEDS: Furosemide 40 MG/4 ML VIAL IVP SCH ×2 (09:33→16:57)
[2018-05-04] MEDS: Doxycycline 100 MG CAPSULE PO SCH ×2 (09:33→20:07)
[2018-05-04] MEDS: Diltiazem CD (24hr) 240 MG CAPSULE PO SCH (09:33)
[2018-05-04] MEDS: Metoprolol XL (24 HR) Succ 25 MG TAB.ER.24H PO SCH ×2 (09:33→20:07)
[2018-05-04 09:41] LABS: Basophils # 0.1 K/mcL (0.0-0.2); Basophils % 0.6 %; Eosinophils # 0.2 K/mcL (0.0-0.6); Eosinophils % 1.4 %; Immature Granulocytes % 0.5 % (0-4); Lymphocytes % 17.3 %; Mean Corpuscular HGB Conc 32.6 g/dL (31.6-35.5); Mean Corpuscular Hemoglobin 30.2 pg (28.0-33.3); Mean Corpuscular Volume 92.7 fL (83.0-100.0); Mean Platelet Volume 10.1 fL (9.4-12.4); Monocytes % 8.1 %; Neutrophils # 8.5 K/mcL (1.6-8.9); Platelet Count 286 K/mcL (140-400); Red Blood Count 4.53 M/mcL (3.82-4.97); Red Cell Distribution Width 14.2 % (11.5-14.5); Segmented Neutrophils % 72.1 %
--- NOTE | 2018-05-04 09:53 | Cardiology Progress Note ---
Date of Encounter: 05/04/18 Time of Encounter: 08:35 Assessment and Plan (1) Acute pulmonary embolism Current Visit: Yes Status: Acute Pulmonary embolism noted on CT. She is hemodynamically stable. Normal RV function per TTE report. Repeat TTE shows EF 45-50% with global systolic dysfunction. Dilated LV. No RV strain noted Continue anticoagulation with eliquis PE dosing. Qualifiers: Pulmonary embolism type: other Acute cor pulmonale presence: without acute cor pulmonale Qualified Code(s): I26.99 - Other pulmonary embolism without acute cor pulmonale (2) Atrial fibrillation with rapid ventricular response Current Visit: Yes Status: Acute Atrial fibrillation in the setting of acute pulmonary embolism. Heart rate is improved yesterday and she was weaned of cardizem. AVg HR 118 bpm over last 12 hours. Increase Cardizem to 240 mg daily. Continue to increase as needed. Continue beta mia therapy. She is now on eliquis for PE, DVT, and A. fib. (3) Elevated troponin Current Visit: Yes Status: Acute Minimal troponin elevation in the setting of tachycardia and pulmonary embolism. Presentation is not consistent with ACS. Continue treatment as above. (4) Abnormal echocardiogram Current Visit: Yes Status: Acute TTE shows mildly reduced systolic dysfunction with EF 45-50%. Possible tachycardia-induced cardiomyopathy. She is not a good candidate for ischemic evaluation the setting of acute PE at this time. We will reevaluate with echo and possible ischemic evaluation in the future. She denies chest pain. Continue Toprol-XL. SHe is euvolemic on exam. No aceI to allow for increase of rate controlling meds. Discussion w patient/family: The assessment and plan as outlined above was discussed with the patient and/or family members who expressed understanding and agreement. All questions were answered. Thank you for involving us in the care of your patient. Please call with any questions. Subjective Principal diagnosis: Atrial fibrillation Interval history: Patient resting in bed with no complaints. Objective Vital Signs, Last 4 Hours Temp Pulse Resp BP 05/04/18 07:32 98.0 F 88 16 125/76 General: Conversant, No Apparent Distress HEENT: Atraumatic, Normocephaly, Mucus Membranes Moist Neck: No JVD, Normal carotid pulses Cardiac: Other (Irregularly irregualr) Lungs: Normal Breath Sounds, No Wheeze, Rales, Rhonchi Neuro: Alert and responsive, No focal deficits noted Abdomen: Soft, Non-Tender Skin: No rashes noted on visualized skin Musculoskeletal: No Chest Wall Tenderness Extremities: No Clubbing, No Cyanosis, No Edema, Normal Pulses Results 05/03/18 04:35 05/03/18 04:35 Lab Results 05/03/18 18:03 D-Dimer 1693 H - Imaging and Cardiology Echo: report reviewed - EKG Interpretation EKG results cardiology: personally reviewed - VTE Documentation of Mechanical Device: Graduated compression elastic hosiery Consult Discharge Plan - Plan Referrals: NONE,PCP [Primary Care Provider] - Leodan Marquez [Family Provider] - Prescriptions: Apixaban [Eliquis] 5 mg PO AD #1 tab.ds.pk
[2018-05-04 09:58] LABS: BUN/Creatinine Ratio 30 (6-26); Blood Urea Nitrogen 25 mg/dL (8-23); Calcium 9.3 mg/dL (8.6-10.3); Carbon Dioxide 26 mEq/L (23-29); Chloride 104 mEq/L (98-107); Glucose 109 mg/dL (70-105); Osmolality,Calculated 299 (280-300); Potassium 2.9 mEq/L (3.5-5.1); Sodium 142 mEq/L (136-145); eGFR For Non-African Americans > 60 (> 60)
[2018-05-04 10:10] LABS: Hemoglobin 13.7 g/dL (11.5-15.4)
[2018-05-04] MEDS: *HR* Metoprolol 5 MG/5 ML VIAL IVP PRN ×2 (11:23→17:59)
--- NOTE | 2018-05-04 15:15 | Oncology Inp Progress Note ---
Date of Encounter: 05/04/18 Time of Encounter: 14:00 (1) Acute pulmonary embolism Current Visit: Yes Status: Acute Assessment and plan: CT angiogram 05/01/2018 showed pulmonary embolism with significant clot burden Echocardiogram 05/01/2018 showed significantly dilated left atrium. Mild pulmonary hypertension. Also severely compromised left ventricular ejection fraction LE venous doppler: The left distal superficial femoral vein demonstrated a partially occlusive thrombus. Newly dx Atrial fibrillation with RVR. Given left atrial dilatation she may have atrial fibrillation for a while but this was diagnosed during this admission. Cardiology following This is her first episode of venous thrombotic embolism and appears to be unprovoked. She needs long-term anticoagulation. Renal function normal creatinine 0.73. She has transitioned to Eliquis initially 10 mg twice a day for 7 days then 5 mg twice a day. We will do factor V Leiden, prothrombin gene mutation and lupus anticoagulant--- pending We discussed recommendation for ensuring she is UTD on cancer screenings. We recommended CT abdomen/pelvis with IV contrast, however, patient is declining CT at this time, this is reasonable and can be pursued as an outpatient once her acute issues improve. Patient was given information for follow up in about 2 weeks time. Importance of f/u was discussed. Hematology will otherwise sign off with plans to follow up as an outpatient, feel free to contact for any further questions or concerns. Qualifiers: Pulmonary embolism type: other Acute cor pulmonale presence: without acute cor pulmonale Qualified Code(s): I26.99 - Other pulmonary embolism without acute cor pulmonale Oncology: Subj Interval history: Ms. Beckett reports no acute events overnight. Her HR continues to be elevated at times, HR currently around 115-120 at rest. She denies chest pain, SOB, pain with inspiration, H/A, dizziness, abdominal symptoms, urinary changes or any s/ s bleeding. She does report heart palpitations. She has been transitioned to Eliquis. She appears frustrated that she is still in the hospital. She states she has been in [facility] until her admission and rarely needs to see the doctor. - Constitutional Vitals: Vital Signs Temp Pulse Resp BP Pulse Ox 05/04/18 10:53 18 96 05/04/18 07:32 98.0 F 88 16 125/76 05/04/18 04:05 18 88 05/04/18 04:00 97.9 F 113 17 118/78 97 05/04/18 00:20 103/83 05/03/18 23:50 144/100 05/03/18 23:35 133/88 05/03/18 23:20 142 18 135/78 96 05/03/18 22:00 16 98 05/03/18 20:00 97.9 F 123 17 149/106 96 05/03/18 16:03 16 96 05/03/18 15:40 97.7 F 63 15 133/103 96 Intake and Output 05/03/18 05/04/18 05/04/18 23:59 07:59 15:59 Intake Total 810 / 810 120 / 120 600 / 600 Output Total 700 / 700 300 / 300 Balance 110 / 110 -180 / -180 600 / 600 Intake: IV Fluids 210 / 210 Heparin 25,000 UNIT/500 ML D5W 210 / 210 25,000 unit In 500 ml @ 14 UNIT /KG/HR 22.988 mls/hr IVC . [id number] [facility] Rx#:[id number] Oral 600 / 600 120 / 120 600 / 600 Output: Urine 700 / 700 300 / 300 Other: Meal Dinner Lunch Percent of Meal Consumed 100% 50% Weight 81.8 kg Patient Weight 05/04/18 23:59 Weight 81.8 kg General appearance: cooperative, no acute distress, no febrile - Head Head exam: Present: atraumatic - ENT ENT exam: Present: mucous membranes moist - Respiratory Respiratory exam: Present: CTAB. Absent: respiratory distress - Cardiovascular Cardiovascular exam: Present: irregular rhythm, tachycardia - GI/Abdominal GI/Abdominal exam: Present: normal bowel sounds, soft. Absent: tenderness - Extremities Exam Extremities exam: Present: normal inspection. Absent: calf tenderness - Neurological Exam Neurological exam: Present: alert, oriented X3, no focal deficits, strengths equal and symetr throughout - Skin Skin exam: Present: dry, intact, normal color, warm Oncology: Obj Data - Labs CBC & Chem 7: 05/05/18 03:13 05/05/18 03:13 Labs: Laboratory Results - last 24 hr 05/03/18 05/04/18 05/04/18 18:03 09:19 09:19 WBC 11.7 H RBC 4.53 Hgb 13.7 D Hct 42.0 MCV 92.7 MCH 30.2 MCHC 32.6 RDW 14.2 Plt Count 286 MPV 10.1 Immature Gran % 0.5 Seg Neutrophils % 72.1 Lymphocytes % 17.3 Monocytes % 8.1 Eosinophils % 1.4 Basophils % 0.6 Neutrophils # 8.5 Lymphocytes # 2.0 Monocytes # 1.0 Eosinophils # 0.2 Basophils # 0.1 D-Dimer 1693 H Sodium 142 Potassium 2.9 L Chloride 104 Carbon Dioxide 26 BUN 25 H Creatinine 0.84 Est GFR ( Amer) > 60 Est GFR (Non-Af Amer) > 60 BUN/Creatinine Ratio 30 H Glucose 109 H Calculated Osmolality 299 Calcium 9.3 - Impressions Impressions Echocardiogram Limited Views 05/02/18 13:09 Impressions: LVEF 45-50%. Mildly reduced to low normal global LV systolic dysfunction. - ABG Interpretation ABG results: ABG ABG pH 7.40 pH Units (7.32-7.45) 05/01/18 12:50 ABG pCO2 33 mmHg (35-45) L 05/01/18 12:50 ABG pO2 76 mmHg (85-104) L 05/01/18 12:50 ABG O2 Saturation 95 % (95-98) 05/01/18 12:50 PT/INR, D-dimer PT 12.2 Seconds (9.4-12.1) H 04/30/18 00:15 D-Dimer 1693 ng/mLFEU (0-500) H 05/03/18 18:03 Consult Discharge Plan - Plan Referrals: Lashell Rogers CNP [Advanced Practice Nurse] - 05/18/18 9:00 am (this is located at the [facility] please call with any questions or concerns) NONE,PCP [Primary Care Provider] - (talked with patient she wants to set up her own pcp appointment i gave her the [phone]-find card and explained how for her to go about getting a pcp but she refused for me to set her up now) Prescriptions: Apixaban [Eliquis] 5 mg PO AD #1 tab.ds.pk Inpatient Charges Provider: Lashell Rogers CNP Follow up - Inpatient: [id number]
[2018-05-04] MEDS: *HR* LORazepam 0.5 MG TABLET PO PRN (22:46)
[2018-05-05 03:31] LABS: Basophils % 0.4 %; Eosinophils # 0.1 K/mcL (0.0-0.6); Eosinophils % 1.2 %; Hematocrit 41.8 % (35.3-44.9); Hemoglobin 13.6 g/dL (11.5-15.4); Immature Granulocytes % 0.5 % (0-4); Lymphocytes # 2.4 K/mcL (0.6-4.6); Lymphocytes % 21.5 %; Mean Corpuscular HGB Conc 32.5 g/dL (31.6-35.5); Mean Corpuscular Hemoglobin 30.2 pg (28.0-33.3); Mean Corpuscular Volume 92.7 fL (83.0-100.0); Mean Platelet Volume 9.7 fL (9.4-12.4); Monocytes # 0.9 K/mcL (0.0-1.3); Neutrophils # 7.6 K/mcL (1.6-8.9); Platelet Count 282 K/mcL (140-400); Red Blood Count 4.51 M/mcL (3.82-4.97); Segmented Neutrophils % 68.4 %
[2018-05-05 03:46] LABS: BUN/Creatinine Ratio 37 (6-26); Blood Urea Nitrogen 30 mg/dL (8-23); Calcium 9.4 mg/dL (8.6-10.3); Carbon Dioxide 26 mEq/L (23-29); Chloride 105 mEq/L (98-107); Glucose 126 mg/dL (70-105); Osmolality,Calculated 302 (280-300); Potassium 3.3 mEq/L (3.5-5.1); Sodium 142 mEq/L (136-145); eGFR For Non-African Americans > 60 (> 60)
[2018-05-05] MEDS: Levalbuterol Neb 1.25 MG/3 ML IH SCH ×4 (03:46→22:20)
[2018-05-05] MEDS: Diltiazem CD (24hr) 240 MG CAPSULE PO SCH (09:44)
[2018-05-05] MEDS: Metoprolol XL (24 HR) Succ 25 MG TAB.ER.24H PO SCH ×2 (09:44→20:48)
[2018-05-05] MEDS: Apixaban 5 MG TABLET PO SCH ×2 (09:44→20:47)
[2018-05-05] MEDS: Furosemide 40 MG/4 ML VIAL IVP SCH ×2 (09:45→16:27)
[2018-05-05] MEDS: Doxycycline 100 MG CAPSULE PO SCH ×2 (09:45→20:47)
[2018-05-05] MEDS: predniSONE 20 MG TABLET PO SCH (09:45)
[2018-05-05] MEDS: *HR* Digoxin 0.5 MG/2 ML AMPUL IVP SCH ×2 (12:09→18:23)
[2018-05-05] MEDS: *HR* Metoprolol 5 MG/5 ML VIAL IVP PRN (12:39)
--- NOTE | 2018-05-05 12:45 | Internal Med Progress Note ---
Hospitalist Progress Note - Encounter Date of Encounter: 05/05/18 Time of Encounter: 15:27 - Subjective Interval History: No acute events. States feeling better after heart rate controlled. She is still on oxygen. - Exam Vitals: Temp Pulse Resp BP Pulse Ox 98.1 F 139 16 116/92 95 05/05/18 11:14 05/05/18 11:14 05/05/18 11:14 05/05/18 11:14 05/05/18 11:14 Exam: General: Well-developed female, some labored breathing with minimal exertion noted. Skin: Pale and dry, diaphoretic Neck: No lymphadenopathy. No JVD. No carotid bruits. No palpable thyroid. Chest: fine rales at bases, fgood air exchange., no wheezing on today's exam Heart: Regular rate, irregular rhythm Extremities: No clubbing, cyanosis. No calf tenderness. Trace bipedal edema Neurological: Awake, alert and oriented to person, place and time. No focal deficits. - Assessment and Plan (1) Acute respiratory failure with hypoxia Current Visit: Yes Status: Acute Assessment and Plan: Patient has rales on exam this morning and faint wheezing. Currently requires 4 L O2 which she does not require O2 at home. Chest x-ray on admission shows right lower lobe opacity that could be atelectasis, pleural fluid, or underlycin pneumonia. Trace bipedal edema on exam. Has history of second hand smoke but not tobacco user. No known lung disease. Secondary to fluid overload, afrib with RVR, and acute pulmonary embolism Repeat echo 05/03: LVEF 45-50%with mild normal global LV systolic dysfunction. - Continue IV Lasix BID - Monitor I/Os - Continue Doxycycline - Wean O2 as tolerated - Incentive spirometery - Cardiology following, recommendations appreciated. - Pulmonology was consulted and agreed with current therapy and recommended Heme /Onc eval. They have been consulted - initial workup being done but patient would like to finish majority of workup of Heme/Onc outpatient. Improving with diuresis and Anticoagulation currently with Eliquis. (2) Acute pulmonary embolism Current Visit: Yes Status: Acute Assessment and Plan: See plan as above. unprovoked DVT - Hematology/Onc eval, patient prefers to do further Heme/Onc eval as outpatient. Currently on Elquis, transitioned from heparin drip. (3) Atrial fibrillation with rapid ventricular response Current Visit: Yes Status: Acute Assessment and Plan: Newly diagnosed however based on her history it seems to have been present for a while. She just never sought medical attention. Now she presents in a highly decompensated state that could potentially lead to a functional heart failure state. [id number] score 2 (age/sex). Repeat echo 05/03: LVEF 45-50%with mild normal global LV systolic dysfunction. Cardiology following, recommendations appreciated. - On Eliquis, heparin drip DC'd Overnight tachycardia occurred with HR 140-160s. - Metoprolol 50 mg XL PO BID - Cardizem CD 240 mg daily - Digoxin started, loading dose currently (4) Leukocytosis Current Visit: Yes Status: Acute Assessment and Plan: Unclear etiology. No clinical signs/symptoms of infection present. May be stress response or pneumonia. WBC on admission elevated at 14k slowly trended down to 11.7. CXR shows atelectasis on left but possible pneumonia. She has some chest congestion. Likely due to acute PE,now resolved. Continue Eliquis (5) Elevated troponin Current Visit: Yes Status: Acute Assessment and Plan: In the setting of afib w/ rvr. Patient w/o chest pain. Likely secondary to demand ischemia. Will continue to trend as we control her heart rate. (6) Superficial vein thrombosis Current Visit: Yes Status: Acute Assessment and Plan: Left distal superficial femoral vein showed partially occlusive thrombus on venous duplex. On Eliquis - Time Spent with Patient Total time spent is greater than 50% in coordination of care (as documented) at patient's floor/unit and/or counseling patient: Internal Medicine: Result - Labs CBC & Chem 7: 05/05/18 03:13 05/05/18 03:13 Labs: Short CBC 05/05/18 Range/Units 03:13 WBC 11.0 (4.3-11.1) K/mcL Hgb 13.6 (11.5-15.4) g/dL Hct 41.8 (35.3-44.9) % Plt Count 282 (140-400) K/mcL Neutrophils # 7.6 (1.6-8.9) K/mcL BMP 05/05/18 03:13 Sodium 142 Potassium 3.3 L Chloride 105 Carbon Dioxide 26 BUN 30 H Creatinine 0.82 Glucose 126 H Calcium 9.4 - ABG Interpretation ABG results: ABG ABG pH 7.40 pH Units (7.32-7.45) 05/01/18 12:50 ABG pCO2 33 mmHg (35-45) L 05/01/18 12:50 ABG pO2 76 mmHg (85-104) L 05/01/18 12:50 ABG O2 Saturation 95 % (95-98) 05/01/18 12:50 PT/INR, D-dimer PT 12.2 Seconds (9.4-12.1) H 04/30/18 00:15 D-Dimer 1693 ng/mLFEU (0-500) H 05/03/18 18:03 - VTE Documentation of Mechanical Device: Graduated compression elastic hosiery Consult Discharge Plan - Plan Referrals: Lashell Rogers, CLINICAL CARE MANAGER [Advanced Practice Nurse] - 05/18/18 9:00 am (this is located at the [facility] please call with any questions or concerns) NONE,PCP [Primary Care Provider] - (talked with patient she wants to set up her own pcp appointment i gave her the [phone]-find card and explained how for her to go about getting a pcp but she refused for me to set her up now) Prescriptions: Apixaban [Eliquis] 5 mg PO AD #1 tab.ds.pk (2) Acute pulmonary embolism Qualifiers: Pulmonary embolism type: other Acute cor pulmonale presence: without acute cor pulmonale Qualified Code(s): I26.99 - Other pulmonary embolism without acute cor pulmonale (4) Leukocytosis Qualifiers: Leukocytosis type: unspecified Qualified Code(s): D72.829 - Elevated white blood cell count, unspecified
--- NOTE | 2018-05-05 12:47 | Cardiology Progress Note ---
Date of Encounter: 05/05/18 Time of Encounter: 12:00 Assessment and Plan (1) Acute pulmonary embolism Current Visit: Yes Status: Acute Pulmonary embolism noted on CT. Normal RV function per TTE report. Repeat TTE shows EF 45-50% with global systolic dysfunction. Dilated LV. No RV strain noted. Continue anticoagulation with eliquis PE dosing. Qualifiers: Pulmonary embolism type: other Acute cor pulmonale presence: without acute cor pulmonale Qualified Code(s): I26.99 - Other pulmonary embolism without acute cor pulmonale (2) Atrial fibrillation with rapid ventricular response Current Visit: Yes Status: Acute Atrial fibrillation in the setting of acute pulmonary embolism. Started on cardizem gtt and weaned off 05/03/18. HR increased following day and oral cardizem and metoprolol was increased. Last night patient developed atrial fibrillation with RVR HR 160's. I discussed with Dr. Owens, recommends starting IV digoxin load with short term oral digoxin. She is not a good candidate for DCCV due to acute PE. Rate control recommended at this time. She is now on eliquis for PE, DVT, and A. fib. (3) Elevated troponin Current Visit: Yes Status: Acute Minimal troponin elevation in the setting of tachycardia and pulmonary embolism. Presentation is not consistent with ACS. Continue treatment as above. (4) Cardiomyopathy Current Visit: Yes Status: Acute TTE shows mildly reduced systolic dysfunction with EF 45-50%. Possible tachycardia-induced cardiomyopathy. She is not a good candidate for ischemic evaluation the setting of acute PE at this time. We will reevaluate with echo and possible ischemic evaluation in the future. She denies chest pain. Continue Toprol-XL. She is euvolemic on exam. No aceI to allow for increase of rate controlling meds. Low sodium diet recommended. Qualifiers: Cardiomyopathy type: unspecified Qualified Code(s): I42.9 - Cardiomyopathy , unspecified Discussion w patient/family: The assessment and plan as outlined above was discussed with the patient and/or family members who expressed understanding and agreement. All questions were answered. Thank you for involving us in the care of your patient. Please call with any questions. Subjective Principal diagnosis: Atrial fibrillation Interval history: Patient resting in bed. Denies chest pain or palpitations. C/o feeling discouraged due to persistent elevated HR. Objective Vital Signs, Last 4 Hours Temp Pulse Resp BP Pulse Ox 05/05/18 11:14 98.1 F 139 16 116/92 95 05/05/18 10:21 16 93 General: Conversant, No Apparent Distress HEENT: Atraumatic, Normocephaly, Mucus Membranes Moist Neck: No JVD, Normal carotid pulses Cardiac: Other (Irregualrly irregular) Lungs: Normal Breath Sounds, No Wheeze, Rales, Rhonchi Neuro: Alert and responsive, No focal deficits noted Abdomen: Soft, Non-Tender Skin: No rashes noted on visualized skin Musculoskeletal: No Chest Wall Tenderness Extremities: No Clubbing, No Cyanosis, No Edema, Normal Pulses Results 05/05/18 03:13 05/05/18 03:13 Lab Results 05/05/18 05/05/18 05/05/18 03:13 03:13 03:13 WBC 11.0 Hgb 13.6 Hct 41.8 Plt Count 282 Sodium 142 Potassium 3.3 L Chloride 105 Carbon Dioxide 26 BUN 30 H Creatinine 0.82 Glucose 126 H Calcium 9.4 Magnesium 1.7 - Imaging and Cardiology Echo: report reviewed - EKG Interpretation EKG results cardiology: personally reviewed - VTE Documentation of Mechanical Device: Graduated compression elastic hosiery Consult Discharge Plan - Plan Referrals: Lashell Rogers, CREELER [Advanced Practice Nurse] - 05/18/18 9:00 am (this is located at the [facility] please call with any questions or concerns) NONE,PCP [Primary Care Provider] - (talked with patient she wants to set up her own pcp appointment i gave her the [phone]-find card and explained how for her to go about getting a pcp but she refused for me to set her up now) Prescriptions: Apixaban [Eliquis] 5 mg PO AD #1 tab.ds.pk
[2018-05-06] MEDS: *HR* Digoxin 0.5 MG/2 ML AMPUL IVP SCH (00:29)
[2018-05-06] MEDS: Simethicone 80 MG TAB.CHEW PO PRN (00:32)
[2018-05-06] MEDS: Levalbuterol Neb 1.25 MG/3 ML IH SCH ×4 (10:39→21:20)
[2018-05-06 11:47] LABS: BUN/Creatinine Ratio 36 (6-26); Blood Urea Nitrogen 30 mg/dL (8-23); Calcium 9.5 mg/dL (8.6-10.3); Carbon Dioxide 27 mEq/L (23-29); Chloride 103 mEq/L (98-107); Glucose 96 mg/dL (70-105); Osmolality,Calculated 296 (280-300); Potassium 3.9 mEq/L (3.5-5.1); Sodium 140 mEq/L (136-145); eGFR For Non-African Americans > 60 (> 60)
--- NOTE | 2018-05-06 12:28 | Event Note ---
Date of Encounter: 05/06/18 Time of Encounter: 12:27 - Cardiology Event Note Patient seen and examined during [facility]. See paper progress note. Cardiology signed off and will follow in outpateint setting. Follow up set.
[2018-05-06] MEDS: Doxycycline 100 MG CAPSULE PO SCH ×2 (13:31→20:33)
[2018-05-06] MEDS: Diltiazem CD (24hr) 240 MG CAPSULE PO SCH (13:31)
[2018-05-06] MEDS: Apixaban 5 MG TABLET PO SCH ×2 (13:32→20:33)
[2018-05-06] MEDS: Furosemide 40 MG/4 ML VIAL IVP SCH (13:33)
[2018-05-06] MEDS: Metoprolol XL (24 HR) Succ 25 MG TAB.ER.24H PO SCH ×2 (13:33→20:33)
[2018-05-06] MEDS: predniSONE 20 MG TABLET PO SCH (13:34)
[2018-05-06] MEDS ORDERED: Diltiazem CD (24hr) 240 MG CAPSULE PO ONE (14:49)
[2018-05-06] MEDS ORDERED: Levalbuterol Neb 1.25 MG/3 ML IH ONE ×2 (14:49)
[2018-05-06] MEDS ORDERED: Metoprolol XL (24 HR) Succ 25 MG TAB.ER.24H PO ONE (14:49)
[2018-05-06] MEDS ORDERED: predniSONE 20 MG TABLET PO ONE (14:49)
[2018-05-06] MEDS ORDERED: Furosemide 40 MG/4 ML VIAL IV ONE (14:49)
[2018-05-06] MEDS ORDERED: Apixaban 5 MG TABLET PO ONE (14:49)
[2018-05-06] MEDS ORDERED: *HR* Digoxin 0.5 MG/2 ML AMPUL IVP ONE (14:49)
[2018-05-06] MEDS ORDERED: Doxycycline 100 MG CAPSULE PO ONE (14:49)
[2018-05-06] MEDS: Furosemide 40 MG TABLET PO SCH (15:52)
[2018-05-06] MEDS: *HR* Digoxin 0.125 MG TABLET PO SCH (15:53)
--- NOTE | 2018-05-06 17:02 | Internal Med Progress Note ---
Hospitalist Progress Note - Encounter Date of Encounter: 05/06/18 Time of Encounter: 12:00 - Subjective Interval History: Patient was initially seen in AM. Meditech down. Orders could not be done in the mean time until system came back up in the afternoon. Denies chest pain, SOB, palpitations. - Exam Vitals: Temp Pulse Resp BP Pulse Ox 97.4 F L 100 18 146/86 97 05/05/18 23:48 05/05/18 23:48 05/06/18 16:26 05/05/18 23:48 05/06/18 16:26 Exam: General: Well-developed female, some labored breathing with minimal exertion noted. Skin: Pale and dry, diaphoretic Neck: No lymphadenopathy. No JVD. No carotid bruits. No palpable thyroid. Chest: fine rales at bases, fgood air exchange., no wheezing on today's exam Heart: Regular rate, irregular rhythm Extremities: No clubbing, cyanosis. No calf tenderness. Trace bipedal edema Neurological: Awake, alert and oriented to person, place and time. No focal deficits. - Assessment and Plan (1) Acute respiratory failure with hypoxia Current Visit: Yes Status: Acute Assessment and Plan: Patient has rales on exam this morning and faint wheezing. Currently requires 4 L O2 which she does not require O2 at home. Chest x-ray on admission shows right lower lobe opacity that could be atelectasis, pleural fluid, or underlycin pneumonia. Trace bipedal edema on exam. Has history of second hand smoke but not tobacco user. No known lung disease. Secondary to fluid overload, afrib with RVR, and acute pulmonary embolism Repeat echo 05/03: LVEF 45-50%with mild normal global LV systolic dysfunction. - Monitor I/Os - Continue Doxycycline - Wean O2 as tolerated - Incentive spirometery - Cardiology following, recommendations appreciated. - Pulmonology was consulted and agreed with current therapy and recommended Heme/Onc eval. They have been consulted - initial workup being done but patient would like to finish majority of workup of Heme/Onc outpatient. Improving with diuresis and Anticoagulation currently with Eliquis. Transitioned to Lasix PO today. (2) Acute pulmonary embolism Current Visit: Yes Status: Acute Assessment and Plan: See plan as above. unprovoked DVT - Hematology/Onc eval, patient prefers to do further Heme/Onc eval as outpatient. Currently on Elquis (3) Atrial fibrillation with rapid ventricular response Current Visit: Yes Status: Acute Assessment and Plan: Newly diagnosed however based on her history it seems to have been present for a while. She just never sought medical attention. Now she presents in a highly decompensated state that could potentially lead to a functional heart failure state. [id number] score 2 (age/sex). Repeat echo 05/03: LVEF 45-50%with mild normal global LV systolic dysfunction. Cardiology following, recommendations appreciated. - On Eliquis, heparin drip DC'd Overnight tachycardia occurred with HR 140-160s. - Metoprolol 50 mg XL PO BID - Cardizem CD 240 mg daily - Digoxin started yesterday (4) Leukocytosis Current Visit: Yes Status: Acute Assessment and Plan: Unclear etiology. No clinical signs/symptoms of infection present. May be stress response or pneumonia. WBC on admission elevated at 14k slowly trended down to 11.7. CXR shows atelectasis on left but possible pneumonia. She has some chest congestion. Likely due to acute PE,now resolved. Continue Eliquis (5) Elevated troponin Current Visit: Yes Status: Acute Assessment and Plan: In the setting of afib w/ rvr. Patient w/o chest pain. Likely secondary to demand ischemia. Will continue to trend as we control her heart rate. (6) Superficial vein thrombosis Current Visit: Yes Status: Acute Assessment and Plan: Left distal superficial femoral vein showed partially occlusive thrombus on venous duplex. On Eliquis - Time Spent with Patient Total time spent is greater than 50% in coordination of care (as documented) at patient's floor/unit and/or counseling patient: Internal Medicine: Result - Labs CBC & Chem 7: 05/05/18 03:13 05/06/18 05:08 Labs: BMP 05/06/18 05:08 Sodium 140 Potassium 3.9 Chloride 103 Carbon Dioxide 27 BUN 30 H Creatinine 0.83 Glucose 96 Calcium 9.5 - ABG Interpretation ABG results: ABG ABG pH 7.40 pH Units (7.32-7.45) 05/01/18 12:50 ABG pCO2 33 mmHg (35-45) L 05/01/18 12:50 ABG pO2 76 mmHg (85-104) L 05/01/18 12:50 ABG O2 Saturation 95 % (95-98) 05/01/18 12:50 PT/INR, D-dimer PT 12.2 Seconds (9.4-12.1) H 04/30/18 00:15 D-Dimer 1693 ng/mLFEU (0-500) H 05/03/18 18:03 - VTE Documentation of Mechanical Device: Graduated compression elastic hosiery Consult Discharge Plan - Plan Instructions: Atrial Fibrillation (DC) Referrals: Lashell Rogers, [employer] [Advanced Practice Nurse] - 05/18/18 9:00 am (this is located at the [facility] please call with any questions or concerns) NONE,PCP [Primary Care Provider] - (talked with patient she wants to set up her own pcp appointment i gave her the [phone] card and explained how for her to go about getting a pcp but she refused for me to set her up now) Prescriptions: Apixaban [Eliquis] 5 mg PO AD #1 tab.ds.pk (2) Acute pulmonary embolism Qualifiers: Pulmonary embolism type: other Acute cor pulmonale presence: without acute cor pulmonale Qualified Code(s): I26.99 - Other pulmonary embolism without acute cor pulmonale (4) Leukocytosis Qualifiers: Leukocytosis type: unspecified Qualified Code(s): D72.829 - Elevated white blood cell count, unspecified
[2018-05-06] MEDS: *HR* Metoprolol 5 MG/5 ML VIAL IVP PRN (20:45)
[2018-05-06 21:53] LABS: APTT (LE Anticoag) 57 sec (32-48); Diluted Russell Viper Venom 27 sec (33-44); LE APTT D Heparin Neutralized 35 sec (32-48); LE Coag Reptilase Time 15.8 sec (<=21.9); PT (LE-Anticoag) 13.9 sec (12.0-15.5)
[2018-05-06] MEDS: *HR* LORazepam 0.5 MG TABLET PO PRN (23:40)
[2018-05-07] MEDS: Levalbuterol Neb 1.25 MG/3 ML IH SCH ×3 (03:17→16:38)
[2018-05-07 07:47] VITALS: BP 145/86
[2018-05-07] MEDS: Furosemide 40 MG TABLET PO SCH (08:28)
[2018-05-07] MEDS: Diltiazem CD (24hr) 240 MG CAPSULE PO SCH (08:28)
[2018-05-07] MEDS: Metoprolol XL (24 HR) Succ 25 MG TAB.ER.24H PO SCH (08:28)
[2018-05-07] MEDS: Apixaban 5 MG TABLET PO SCH (08:28)
[2018-05-07] MEDS: *HR* Digoxin 0.125 MG TABLET PO SCH (08:29)
--- NOTE | 2018-05-07 10:22 | Discharge Summary ---
- NOTES TO OUTPATIENT PROVIDER Notes to Outpatient Provider: follow with cardiology as OP for Atrial fib / follow up TTE. repeat CBC and BMP in 3 days for H/H and renal function along with electrolytes Orders not resulted at time of discharge: Pending orders 04/29/18 23:24 ECG 12 lead ECG [ECG] Stat 05/03/18 18:03 Factor V Leiden Routine Prothrombin Antibody, IgG Routine Date of Encounter: 05/07/18 Time of Encounter: 09:00 - Discharge Diagnosis (1) Acute pulmonary embolism Priority: Primary Status: Acute Qualifiers: Pulmonary embolism type: other Acute cor pulmonale presence: without acute cor pulmonale Qualified Code(s): I26.99 - Other pulmonary embolism without acute cor pulmonale (2) Atrial fibrillation with rapid ventricular response Priority: Secondary Status: Acute (3) Elevated troponin Priority: Secondary Status: Acute (4) Leukocytosis Priority: Secondary Status: Acute Qualifiers: Leukocytosis type: unspecified Qualified Code(s): D72.829 - Elevated white blood cell count, unspecified (5) Acute respiratory failure with hypoxia Priority: Secondary Status: Acute (6) Superficial vein thrombosis Priority: Secondary Status: Acute Hospital course: This is a 72-year-old woman with no significant past medical history who presented to emergency room complaining of 2 weeks of shortness of breath but no chest pain she was increasingly short of breath with the mild to moderate exertion. She also felt her heart racing with palpitations and lightheaded. In the emergency room was found to be in atrial fibrillation with rapid ventricular rate and plan treated with senna infusion of diltiazem she thinks this may be a long-standing problem but has not followed with a physician for. She was admitted for acute hypoxic respiratory failure on 04/29 along with first detected atrial fibrillation. Was started on IV heparin. CTPA was done and it showed acute pulmonary embolus with moderate clot ordered in and evidence of right heart strain, full report below. DVT study of the lower extremity was performed which showed left distal superficial femoral vein with partially occlusive thrombus. Echocardiogram performed, results below. Cardiology and pulmonology were consulted and recommendations followed. Oncology was consulted as patient does have unprovoked DVT and PE. As per oncology team, "She needs long-term anticoagulation. Renal function normal creatinine 0.73. She has transitioned to Eliquis initially 10 mg twice a day for 7 days then 5 mg twice a day. We will do factor V Leiden, prothrombin gene mutation and lupus anticoagulant---pending We discussed recommendation for ensuring she is UTD on cancer screenings. We recommended CT abdomen/pelvis with IV contrast, however, patient is declining CT at this time, this is reasonable and can be pursued as an outpatient once her acute issues improve." Cardiology titrated rate control medications ( not on ACEI to titrate rate control medications for now) and as her chads 2 vasc score was elevated IV heparin was changed to Eliquis for atrial fibrillation, unprovoked DVT and acute pulmonary embolism. She was titrated off nasal cannula, saturating 98% on room air. 6 minute walk test completed she saturated well and did not need oxygen. My first encounter with the patient on 05/07. as per sign out provided to me she was stable for discharge pending cardiology clearance. cardiology signed off on 05/06. appropriate follow up appointments provided by [facility] pharmacy team counseled and educated patient on medication. she understand that she will need close follow up with oncology, cardiology and pulmonology. TTE 04/30: Impressions: Technically challenging due to poor echocardiographic windows. Atrial fibrillation with RVR. LV systolic function grossly appears to be moderate to severely reduced possibly with regional wall motion abnormalities. Unable to evaluate segmental wall motion due to technical quality. Indeterminate diastolic function. Mildly dilated left ventricle. Normal right ventricular structure and function. Severely dilated left atrium. Mild-moderate mitral regurgitation. Mild-moderate tricuspid regurgitation. Mild pulmonic regurgitation. Mild pulmonary hypertension. Recommend repeat study with imaging enhancement when heart rates and clinical repeated TTE: 05/03- Repeat echo 05/03: LVEF 45-50%with mild normal global LV systolic dysfunction. CTPA IMPRESSION: 1. Acute pulmonary embolism with a moderate clot burden. 2. Evidence of cardiomegaly and right heart strain. 3. Bilateral pleural effusions moderate on the right and small on the left with bilateral lower lobe atelectatic changes. DVT: Right lower extremity: normal superficial and deep exam. The left distal superficial femoral vein demonstrated a partially occlusive thrombus. Flow was present this appears chronic in nature Discharge discussed with: patient - Time Spent with Patient Total time spent providing and/or coordinating discharge services: Greater than 30 minutes (40) - Discharge Medications Prescriptions: Apixaban [Eliquis] 5 mg PO AD #1 tab.ds.pk RX: Digoxin [Lanoxin] 0.125 mg PO DAILY 30 Days #30 tablet RX: Diltiazem CD (24hr) [Cardizem CD] 240 mg PO DAILY 30 Days #30 cap.er.24h RX: Furosemide [Lasix] 20 mg PO BIDDIURETIC 30 Days #60 tablet RX: Metoprolol XL (24 HR) Succ [Toprol Xl] 50 mg PO BID 30 Days #60 tab.er.24h Home Medications: RX: Multivit-Min/Iron/Folic Acid/K [Adults Multivitamin Tablet] 1 tab PO DAILY 04/30/18 [History] Apixaban [Eliquis] 5 mg PO AD #1 tab.ds.pk 05/03/18 [Rx] RX: Digoxin [Lanoxin] 0.125 mg PO DAILY 30 Days #30 tablet 05/07/18 [Rx] RX: Diltiazem CD (24hr) [Cardizem CD] 240 mg PO DAILY 30 Days #30 cap.er.24h 05/07/18 [Rx] RX: Furosemide [Lasix] 20 mg PO BIDDIURETIC 30 Days #60 tablet 05/07/18 [Rx] RX: Metoprolol XL (24 HR) Succ [Toprol Xl] 50 mg PO BID 30 Days #60 tab.er.24h 05/07/18 [Rx] Allergies/Adverse Reactions: Allergy/AdvReac Type Severity Reaction Status Date / Time No Known Allergies Allergy Verified 04/29/18 23:29 Date of admission: 04/30/18 02:00 Primary care physician: PCP NONE Consults: 04/30/18 02:01 Consult to Cardiology [CONS] Routine Comment: Consulting Provider: [facility] Reason for Consult: New onset afib in RVR. Call Completed: No 05/01/18 12:04 Consult to Pulmonology [CONS] Routine Consulting Provider: [facility] Reason for Consult: PE, acute resp failure. Call Completed: Yes 05/02/18 14:35 Consult to Oncology [CONS] Routine Consulting Provider: Oncology [facility] Reason for Consult: Unrpovoked DVT Call Completed: Yes - Constitutional Vitals: Temp Pulse Resp BP Pulse Ox 98.0 F 95 19 145/86 99 05/07/18 07:42 05/07/18 07:42 05/07/18 07:42 05/07/18 07:42 05/07/18 10:08 Exam: General: Well-developed female, speaks in full sentences, saturating 98% on RA Skin: warm and dry Neck: No lymphadenopathy. No JVD. No carotid bruits. No palpable thyroid. Chest: CLTA bilateraraly Heart: Regular rate, irregular rhythm, S1 and s2, no murmurs heard, no thrills Extremities: No clubbing, cyanosis. No calf tenderness. Trace bipedal edema Neurological: Awake, alert and oriented to person, place and time. No focal deficits. - Patient Status Disposition: Home, Self-Care Condition: Fair Functional capacity at discharge: independent ambulation Overall status at discharge: patient is progressing back to baseline - Discharge Instructions Instructions: Metoprolol (By mouth), Diltiazem (By mouth), Digoxin (By mouth), Furosemide (By mouth), Apixaban (By mouth), Atrial Fibrillation (DC), Pacemaker (DC), Pulmonary Embolism (DC), Acute Respiratory Distress Syndrome (DC) Follow Up With: Lashell Rogers CNP [Advanced Practice Nurse] - 05/18/18 9:00 am (this is located at the [facility] please call with any questions or concerns) Chava Call MD [Partnered Physician] - 05/14/18 9:00 am NONE,PCP [Primary Care Provider] - (talked with patient she wants to set up her own pcp appointment i gave her the [phone] card and explained how for her to go about getting a pcp but she refused for me to set her up now) Forms: ED Satisfaction Letter - Diet and Activity Activity: increase activity as tolerated Diet: low salt diet - VTE Documentation of Mechanical Device: Graduated compression elastic hosiery
[2018-05-07 18:24] LABS: FACV Specimen WHOLE BLOOD
[2018-05-09 09:29] LABS: Fac V Leiden R506Q Mut Result NEGATIVE
== END 2018-05-07 14:50 | disposition home or self-care (01) | DRG 175 ==
LOC: EMEROOARM 23:15 → 2SOUTHHOLD 23:15 → SUATTDRO 04-30 02:00 → 2SOUTHHOLD 04-30 03:04 → 2NENU 04-30 18:34
PROVIDERS: ADMIT Internal Medicine; ATTEND Student in an Organized Health Care Education/Training Program